=== PATIENT | male | born 1935 | race Caucasian/White ===

== ENCOUNTER 2016-08-08 15:21 | Observation (INO) ==
[2016-08-08] MEDS ORDERED: Nitroglycerin 0.4 MG TAB.SUBL SL PRN (15:26)
[2016-08-08] MEDS ORDERED: Aspirin 325 MG TABLET PO ONE (15:28)
--- NOTE | 2016-08-08 15:29 | Emergency Department Note ---
Disposition Clinical Impression: Chest pain Qualifiers: Chest pain type: unspecified Qualified Code(s): R07.9 - Chest pain, unspecified Disposition: Admitted As Inpatient Condition: Fair Time of Disposition: 17:13 Chest Pain HPI - General Chief Complaint: ED Chest Pain Stated Complaint: Chest Pain Time Seen by Provider: 08/08/16 15:24 Source: patient Mode of arrival: wheelchair Limitations: no limitations Vital Signs Reviewed: Yes Nursing Notes Reviewed: Yes - History of Present Illness HPI Narrative: 81-year-old male with history of CAD, hypertension, diabetes, hyperlipidemia, previous [place] with 4 cardiac stents arrives to [facility] emergency department from an outpatient [facility] dermatology practice after the patient states he was getting skin cancer removed and began complaining of difficulty breathing and chest pain. The patient states that this came all of a sudden wanted to be checked out. The patient states this feels somewhat like his previous [place] but states this time he has pain in his right upper extremity associated with it. The patient denies any other complaints at this time to include unilateral leg swelling, abdominal pain, nausea, vomiting, diarrhea, cough, fever, chills. 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 Onset: during rest Pain Location: substernal Severity: moderate Severity scale (1-10): 4 Quality: tightness Pain Radiation: RUE Improves with: nothing Worsens with: nothing Associated symptoms: Reports: dyspnea Treatments prior to arrival chest pain: none - Related Data On Oral Contraceptives: No Home Medications Medication Instructions Recorded Confirmed Aspirin 81 mg PO DAILY 08/08/16 08/08/16 Clopidogrel [Plavix] 75 mg PO DAILY 08/08/16 08/08/16 Ergocalciferol (VITAMIN D2) 50,000 unit PO PETTY 08/08/16 08/08/16 [Vitamin D2] Fenofibrate Nanocrystallized 160 mg PO DAILY 08/08/16 08/08/16 [Triglide] Linagliptin [Tradjenta] 5 mg PO DAILY 08/08/16 08/08/16 Lisinopril [Zestril] 40 mg PO DAILY 08/08/16 08/08/16 Metoprolol [Lopressor] 25 mg PO BID 08/08/16 08/08/16 Multivitamin [One Daily 1 each PO DAILY 08/08/16 08/08/16 Multivitamin] Pantoprazole Sodium [Protonix] 40 mg PO DAILY 08/08/16 08/08/16 Simvastatin [Zocor] 20 mg PO HS 08/08/16 08/08/16 amLODIPine [Norvasc] 5 mg PO DAILY 08/08/16 08/08/16 Allergies Allergy/AdvReac Type Severity Reaction Status Date / Time No Known Allergies Allergy Verified 08/08/16 17:18 All systems ED: reviewed and negative except as stated. Constitutional: Denies: fever, chills, weakness, weight change Cardiovascular: Reports: chest pain. Denies: palpitations, dyspnea on exertion , edema, syncope Respiratory: Reports: dyspnea. Denies: cough, wheezes, hemoptysis, stridor Gastrointestinal: Denies: abdominal pain, nausea, vomiting, diarrhea, constipation, hematemesis, melena, hematochezia Genitourinary: Denies: urgency, dysuria, frequency, hematuria Musculoskeletal: Denies: back pain, neck pain, arthralgia, myalgia Integumentary: Denies: rash, abrasion, lesions Neurological: Denies: headache, weakness, numbness, paresthesias, confusion, abnormal gait, vertigo Chest Pain PMH - Past Medical History Medical history: Reports: diabetes, hyperlipidemia, hypertension, myocardial infarction, renal disease Psychiatric history: Reports: no psych history Prior Cardiac Testing/Procedures: Stenting (x4) - Social History Smoking Status: Never smoker Alcohol use: Reports: none Drug use: Reports: none Physical Exam - General Limitations: no limitations General appearance: alert - Head Head exam: normocephalic, normal inspection, other (Numerous bandages from surgical site on face.) - Neck Neck exam: Present: normal inspection, full ROM, trachea midline - Respiratory Respiratory exam: Present: normal lung sounds bilaterally - Cardiovascular Cardiovascular exam: Present: regular rate, normal rhythm, normal heart sounds - Abdominal Exam Abdominal exam: Present: soft, Non-Tender. Absent: tenderness, distention, guarding, rebound, rigidity - Extremities Exam Extremities exam: Present: normal inspection, full ROM. Absent: tenderness, pedal edema - Neurological Exam Neurological exam: Present: alert, oriented X3 Course Vital Signs Temperature 98.7 F 08/08/16 15:22 Pulse Rate 73 08/08/16 15:22 Respiratory Rate 20 08/08/16 15:22 Blood Pressure 125/81 08/08/16 15:22 O2 Sat by Pulse Oximetry 95 08/08/16 15:22 Temperature 98.3 F 08/08/16 18:36 Pulse Rate 55 08/08/16 18:36 Respiratory Rate 16 08/08/16 18:36 Blood Pressure 155/70 08/08/16 18:36 O2 Sat by Pulse Oximetry 95 08/08/16 18:36 Oxygen Delivery Oxygen Delivery Room Air Chest Pain - MDM Narrative Medical decision making narrative: Work up in the ED demonstrates no acute findings, but given the past history of [place] and CAD we will admit the patient to the hospital. Accepted by Dr. pate and Dr. mendoza. The patient's troponin and EKG demonstrated no acute findings. Given the patient's extensive medical history and symptoms, admission for repeat troponins would be appropriate. Patient agrees to this plan. While in the emergency department, the dermatology physician remove the sutures from previous skin cancer removal biopsies. - Medical Records Medical records reviewed: Yes I reviewed the patient's medical records. - Lab Data Lab results reviewed: Yes I reviewed the patient's lab results. Result diagrams: 08/08/16 15:30 08/08/16 15:30 Lab Results 08/08/16 08/08/16 08/08/16 Range/Units 15:30 15:30 15:30 WBC 8.7 (4.3-11.1) K/mcL RBC 4.37 (4.19-5.50) M/mcL Hgb 12.9 (12.9-16.9) g/dL Hct 39.8 (37.5-50.1) % MCV 91.1 (83.0-100.0) fL MCH 29.5 (28.0-33.3) pg MCHC 32.4 (31.6-35.5) g/dL RDW 13.3 (11.5-14.5) % Plt Count 246 (140-400) K/mcL MPV 9.9 (9.4-12.4) fL Immature Gran % 0.5 (0-4) % Seg Neutrophils % 56.5 % Lymphocytes % 28.9 % Monocytes % 7.1 % Eosinophils % 6.2 % Basophils % 0.8 % Neutrophils # 4.9 (1.6-8.9) K/mcL Lymphocytes # 2.5 (0.6-4.6) K/mcL Monocytes # 0.6 (0.0-1.3) K/mcL Eosinophils # 0.5 (0.0-0.6) K/mcL Basophils # 0.1 (0.0-0.2) K/mcL Sodium 141 (136-145) mEq/L Potassium 4.0 (3.5-4.5) mEq/L Chloride 106 (98-109) mEq/L Carbon Dioxide 25 (19-29) mEq/L BUN 31 H (8-26) mg/dL Creatinine 1.61 H (0.72-1.25) mg/dL Est GFR ( Amer) 50 L (> 60) Est GFR (Non-Af Amer) 41 L (> 60) BUN/Creatinine Ratio 19 (6-26) Glucose 188 H (70-99) mg/dL Calculated Osmolality 304 H (280-300) Calcium 9.9 (8.6-10.8) mg/dL Troponin I 0.00 (0-0.03) ng/mL - Radiology Data Radiology results reviewed: Yes I reviewed the patient's radiology results. - EKG Data EKG attestation: Yes I reviewed and interpreted this EKG. EKG results narrative: Heart rate 79 bpm. ND interval 154 ms. QTC 419 ms. Normal axis. Normal sinus rhythm. No ST elevation or ST depression noted. EKG from 01/20/2014 demonstrated sinus bradycardia with numerous PVCs. Otherwise rhythm is similar in appearance. No acute changes noted.
[2016-08-08 15:44] LABS: Basophils # 0.1 K/mcL (0.0-0.2); Basophils % 0.8 %; Eosinophils # 0.5 K/mcL (0.0-0.6); Eosinophils % 6.2 %; Hematocrit 39.8 % (37.5-50.1); Hemoglobin 12.9 g/dL (12.9-16.9); Immature Granulocytes % 0.5 % (0-4); Lymphocytes # 2.5 K/mcL (0.6-4.6); Lymphocytes % 28.9 %; Mean Corpuscular HGB Conc 32.4 g/dL (31.6-35.5); Mean Corpuscular Hemoglobin 29.5 pg (28.0-33.3); Mean Corpuscular Volume 91.1 fL (83.0-100.0); Mean Platelet Volume 9.9 fL (9.4-12.4); Monocytes # 0.6 K/mcL (0.0-1.3); Monocytes % 7.1 %; Neutrophils # 4.9 K/mcL (1.6-8.9); Platelet Count 246 K/mcL (140-400); Red Blood Count 4.37 M/mcL (4.19-5.50); Red Cell Distribution Width 13.3 % (11.5-14.5); Segmented Neutrophils % 56.5 %
[2016-08-08] MEDS ORDERED: Aspirin 81 MG TAB.CHEW ONE (15:47)
[2016-08-08 15:54] LABS: Calcium 9.9 mg/dL (8.6-10.8)
--- NOTE | 2016-08-08 16:20 | Emergency Department Note ---
START Narrative - START START: I examined this patient and my medical decision-making was reviewed with the GENERAL ADJUSTER/PA/Advanced Practice Nurse/Resident Physician. I agree with the documented findings, disposition and treatment plan as described except to the extent set forth below. ED attending note: I saw this Patient with the emergency medicine resident Dr. Campuzano. Please see a copy of his note for details of the H&P, evaluation, management and disposition of this emergency Department patient. We independently had [id number] contact with the patient. Briefly 81-year-old male history of CAD/[place], stents x 4 in the past was at the digital marketing assistant having a "skin cancer removed". In experience chest pain. Patient says it felt like his prior heart attack and he was sent here for further evaluation. Patient's multiple risk factors. His troponin and chest x- ray were otherwise negative and the be admitted for chest pain rule out acute coronary syndrome. Provided 35 minutes of critical care services for this patient. Currently the digital marketing assistant is in the room as we speak and removing the skin lesion from the patient's forehead. Admission pending. Patient stable.
--- NOTE | 2016-08-08 17:50 | Internal Med History&Physical ---
<Edwin Flowers - Last Filed: 08/08/16 18:05> Date of Encounter: 08/08/16 Internal Medicine - H&P: HPI History of present illness: Mr. Mack is a 81 year old male Internal Medicine - H&P: Meds Aspirin 81 mg PO DAILY 08/08/16 [History] Clopidogrel [Plavix] 75 mg PO DAILY 08/08/16 [History] Ergocalciferol (VITAMIN D2) [Vitamin D2] 50,000 unit PO PETTY 08/08/16 [History] Fenofibrate Nanocrystallized [Triglide] 160 mg PO DAILY 08/08/16 [History] Linagliptin [Tradjenta] 5 mg PO DAILY 08/08/16 [History] Lisinopril [Zestril] 40 mg PO DAILY 08/08/16 [History] Metoprolol [Lopressor] 25 mg PO BID 08/08/16 [History] Multivitamin [One Daily Multivitamin] 1 each PO DAILY 08/08/16 [History] Pantoprazole Sodium [Protonix] 40 mg PO DAILY 08/08/16 [History] Simvastatin [Zocor] 20 mg PO HS 08/08/16 [History] amLODIPine [Norvasc] 5 mg PO DAILY 08/08/16 [History] Allergies No Known Allergies Allergy (Verified 08/08/16 17:18) All Systems PM: A 10-system review of systems was performed and is negative for pertinent findings except as documented above in the HPI. - Constitutional Vitals: Temp Pulse Resp BP Pulse Ox 98.7 F 66 14 144/75 95 08/08/16 15:22 08/08/16 16:42 08/08/16 17:59 08/08/16 17:59 08/08/16 16:42 Internal Med - H&P Results - Labs CBC & Chem 7: 08/08/16 15:30 08/08/16 15:30 - Attending Attestation I examined this patient and my medical decision-making was reviewed with the CORPORATE SAFETY COORDINATOR/PA/Advanced Practice Nurse/Resident Physician. I agree with the documented findings, disposition and treatment plan as described except to the extent set forth below. <Aldo Peacock - Last Filed: 08/08/16 18:44> Date of Encounter: 08/08/16 Time of Encounter: 17:50 Assessment and Plan (1) Chest pain Current visit: Yes Status: Acute 81-year-old male with a history of coronary artery disease and cardiac stenting 4 with the last stent in 2005 was brought to the emergency department after experiencing substernal chest pressure with radiation to his right arm at the dermatology office. - Current chest pain resolved - EKG demonstrates normal sinus rhythm with left axis, no ST elevation, depression or T-wave inversion - Troponin level X1: 0.00 ADRYAN score: 4 (age greater than 65, greater than 3 coronary artery disease risk factors, known coronary artery disease, aspirin use in the last 7 days) - Appears to be noncardiac chest pain but cannot say if not atypical angina: given that the patient does have substernal chest pressure, though it was not exacerbated with exertion I cannot say he did not have some level of stress given he had hypoglycemia prior to this episode and was having a in office procedure done. He was also at rest at the time of this procedure and chest pressure but did receive nitroglycerin after stated resolution of symptoms. 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 - We will continue simvastatin - We will obtain lipid panel Qualifiers: Qualified Code(s): I25.10 - Atherosclerotic heart disease of [place] coronary artery without angina pectoris (3) History of coronary artery stent placement Current visit: Yes Status: Acute As mentioned above. - The patient is taking Plavix and aspirin but given the length of time since his last coronary stent he would likely not need to continue Plavix. I will place this in my discharge note and allow him to discuss this with his primary care provider. (4) Hypertension Current visit: Yes Status: Acute Continue current management as blood pressure is stable. - Patient is known history of CK D stage III with a current creatinine of 1.61 which is stable compared to the last 2 years. - His outpatient offset platemaker is Dr. Lazaro Plan: - Continue appropriate blood pressure control - Continue monitoring renal function daily - Renally dose antibiotics and avoid nephrotoxic medications - Given renal function will do subcutaneous heparin for DVT prophylaxis Qualifiers: Qualified Code(s): I10 - Essential (primary) hypertension (5) Hypercholesterolemia Current visit: Yes Status: Acute Known history. Ordering lipid panel. (6) Diabetes type 2, controlled Current visit: Yes Status: Acute Known history of type 2 diabetes well controlled. Review of outpatient records demonstrates that the patient has had a hemoglobin A1c of 7.1 on the of this month. Plan: -Before meals at bedtime glucose checks - Low-dose sliding scale insulin Qualifiers: Qualified Code(s): E11.9 - Type 2 diabetes mellitus without complications Internal Medicine - H&P: HPI Admitted From: Emergency Dept Plans for Post Hospital Care: Home History of present illness: Mr. Mack is a 81 year old male with a history of coronary artery disease, hypercholesterolemia, hypertension, type 2 diabetes, [place], cardiac stent 4, multiple left heart catheterizations, CKD stage III, skin cancer was sent to the emergency department from dermatology with substernal chest pressure radiating to his right arm. Mr. Mack was at the template storage clerk's office today having skin cancer lesions excised from his face when he started having substernal chest pressure radiating to his right arm which she described as a feeling of a toothache. He said prior to this event he had low blood sugar and was shaky and went to the vending machine to get some crackers. He otherwise was in his normal state of health. He was at rest when he demonstrated these substernal chest pressure feeling and radiation to the right arm and a throbbing manner. He denies any radiation to his left arm to his jaw or to his back. He did experience similar chest pressure in the past when he had previous myocardial infarctions. He did present a piece of paper from his wallet which demonstrated multiple left heart catheterizations and 4 coronary stents with the last one in 2005. He says he currently takes aspirin and Plavix. He denies any chest pressure with exertion but does become short of breath. He was not experiencing any previous chest pressure prior to this event today or in the last week. He says that the substernal chest pressure relieved when he was brought to the emergency department and prior to having the sublingual nitroglycerin. He did not have any chest pressure or radiation to his arms at the time of this encounter. He denies any nausea, vomiting, diarrhea. Chest pain, shortness of breath at rest, dizziness, palpitations or abdominal pains. He has been constipated with his last bowel movement on Monday. He does admit to a history of GERD but has not had any recent symptoms. He says his home glucose levels are between 110 and 130 fasting. Past Med Surg Social Fam HX - Past Medical History Medical history: diabetes, hyperlipidemia, hypertension, myocardial infarction, renal disease Psychiatric history: no psych history - Social History Smoking Status: Never smoker Smokeless Tobacco Status: No Alcohol use: none Drug use: none All Systems PM: A 10-system review of systems was performed and is negative for pertinent findings except as documented above in the HPI. - Constitutional Constitutional: weakness (Lower extremities) - EENT Eyes: no blurry vision, no change in vision, no diplopia, no loss of vision, no tunnel vision Ears: no decreased hearing Nose, mouth and throat: no dysphagia, no sore throat - Cardiovascular Cardiovascular ROS IM: chest pain (Chest pressure), dyspnea on exertion, no lightheadedness, no orthopnea, no palpitations, no syncope - Respiratory Respiratory: dyspnea, no cough, no wheezing - Gastrointestinal Gastrointestinal: constipation, heartburn, no abdominal pain, no diarrhea, no loose stools, no nausea, no vomiting - Musculoskeletal Musculoskeletal ROS IM: no back pain, no muscle weakness, no numbness, no stiffness - Integumentary Integumentary IM: other (Skin cancer removal just prior to admission) - Neurological Neurological ROS: no abnormal gait, no abnormal hearing, no confusion, no loss of vision, no numbness, no restless legs - Psychiatric Psychiatric: no depression - Constitutional Vitals: Temp Pulse Resp BP Pulse Ox 98.7 F 66 14 136/72 95 08/08/16 15:22 08/08/16 16:42 08/08/16 16:42 08/08/16 16:42 08/08/16 16:42 Exam: General: Patient alert, awake, oriented 3, interactive, in no acute distress HEENT: Normocephalic, atraumatic, pupils equal reactive to light, nasal cavity patent and open septum median position, oral mucosa moist, uvula midline, neck supple trachea midline no palpable lymphadenopathy, no thyromegaly. Chest: Symmetric bilateral correlating with respiratory effort, effort nonlabored. Cardiac: Regular rate and rhythm, positive S1, S2, no bruits appreciated bilateral carotids, Radial pulses 2+ bilateral, posterior tibial and dorsal pedal pulses 2+ bilateral. Respiratory: Mild rhonchi appreciated in bilateral lung bases, clear auscultation all other lung english Abdomen: Soft, nontender, positive bowel sounds, no palpable masses appreciated on examination Extremities: Symmetric bilateral, trace edema in bilateral lower extremities patient moving all 4 extremities spontaneously. Neurologic: No focal deficits appreciated on examination. Face symmetric, muscle strength symmetric bilateral upper and lower extremities. Internal Med - H&P Results - Labs CBC & Chem 7: 08/08/16 15:30 08/08/16 15:30
[2016-08-08] MEDS ORDERED: *HR* Dextrose 50 % in Water (Syg) 50 ML SYRINGE IVP PRN (18:45)
[2016-08-08] MEDS ORDERED: D5% in Water 1,000 ML IVC PRN (18:45)
[2016-08-08] MEDS ORDERED: Dextrose Gel 15 GM PO PRN ×2 (18:45)
[2016-08-08] MEDS ORDERED: Insulin LISPRO 300 UNITS/3 ML VIAL SQ SCH (21:00)
[2016-08-08] MEDS: Insulin LISPRO 300 UNITS/3 ML VIAL SQ SCH (21:27)
[2016-08-08] MEDS: *HR* Heparin 5,000 UNIT/ML VIAL SQ SCH (22:09)
[2016-08-09 02:03] LABS: Basophils # 0.1 K/mcL (0.0-0.2); Basophils % 0.7 %; Eosinophils # 0.5 K/mcL (0.0-0.6); Hematocrit 34.5 % (37.5-50.1); Immature Granulocytes % 0.4 % (0-4); Lymphocytes # 2.2 K/mcL (0.6-4.6); Lymphocytes % 29.3 %; Mean Corpuscular HGB Conc 32.5 g/dL (31.6-35.5); Mean Corpuscular Hemoglobin 29.4 pg (28.0-33.3); Mean Corpuscular Volume 90.6 fL (83.0-100.0); Mean Platelet Volume 10.5 fL (9.4-12.4); Monocytes # 0.7 K/mcL (0.0-1.3); Neutrophils # 4.2 K/mcL (1.6-8.9); Platelet Count 212 K/mcL (140-400); Red Blood Count 3.81 M/mcL (4.19-5.50); Red Cell Distribution Width 13.3 % (11.5-14.5); Segmented Neutrophils % 54.6 %
[2016-08-09 02:06] LABS: Hemoglobin 11.2 g/dL (12.9-16.9)
[2016-08-09 02:17] LABS: Albumin 3.5 g/dL (3.5-5.0); Albumin/Globulin Ratio 1.2 (1.1-2.2); Bilirubin,Total 0.3 mg/dL (0.2-1.2); Calcium 9.2 mg/dL (8.6-10.8); Globulin 2.9 g/dL (2.4-3.5); Magnesium 1.9 mg/dL (1.6-2.6); Phosphorous 3.6 mg/dL (2.3-4.7); Total Protein 6.4 g/dL (6.0-8.3)
[2016-08-09] MEDS: *HR* Heparin 5,000 UNIT/ML VIAL SQ SCH ×2 (06:28→15:04)
[2016-08-09] MEDS: Insulin LISPRO 300 UNITS/3 ML VIAL SQ SCH ×3 (07:56→17:25)
[2016-08-09] MEDS ORDERED: (Linagliptin [Tradjenta] 5 MG) PO SCH (09:00)
[2016-08-09] MEDS ORDERED: Lisinopril 20 MG TABLET PO SCH (09:00)
[2016-08-09] MEDS ORDERED: Fenofibrate 54 MG TABLET PO SCH (09:00)
[2016-08-09] MEDS ORDERED: Aspirin 81 MG TAB.CHEW PO SCH (09:00)
[2016-08-09] MEDS ORDERED: amLODIPine 5 MG TABLET PO SCH (09:00)
[2016-08-09] MEDS ORDERED: Regadenoson 0.4 MG/5 ML SYRINGE IVP ONE (09:57)
--- NOTE | 2016-08-09 11:49 | Internal Med Progress Note ---
Date of Encounter: 08/09/16 Time of Encounter: 11:29 - Assessment and plan (1) Chest pain Current Visit: Yes Status: Acute Assessment and plan: 81-year-old male with a history of coronary artery disease and cardiac stenting 4 with the last stent in 2005 was brought to the emergency department after experiencing substernal chest pressure with radiation to his right arm at the dermatology office. - Current chest pain resolved - EKG demonstrates normal sinus rhythm with left axis, no ST elevation, depression or T-wave inversion - Troponin level X1: 0.00 ADRYAN score: 4 (age greater than 65, greater than 3 coronary artery disease risk factors, known coronary artery disease, aspirin use in the last 7 days) - Appears to be noncardiac chest pain but cannot say if not atypical angina: given that the patient does have substernal chest pressure, though it was not exacerbated with exertion I cannot say he did not have some level of stress given he had hypoglycemia prior to this episode and was having a in office procedure done. He was also at rest at the time of this procedure and chest pressure but did receive nitroglycerin after stated resolution of symptoms. Troponins 3 negative - Plan: - telemetry monitor - Optimize cardiac medications: Continue home dose simvastatin, lisinopril, Lopressor, aspirin, Plavix - Echocardiogram - Trend troponins 3 Qualifiers: Chest pain type: unspecified Qualified Code(s): R07.9 - Chest pain, unspecified (2) Coronary artery disease Current Visit: Yes Status: Acute (3) History of coronary artery stent placement Current Visit: Yes Status: Acute (4) Hypertension Current Visit: Yes Status: Acute (5) Hypercholesterolemia Current Visit: Yes Status: Acute (6) Diabetes type 2, controlled Current Visit: Yes Status: Acute - Constitutional Vitals: Temp Pulse Resp BP Pulse Ox 97.8 F 54 17 157/75 92 08/09/16 06:58 08/09/16 06:58 08/09/16 06:58 08/09/16 06:58 08/09/16 07:40 Internal Medicine: Result - Labs CBC & Chem 7: 08/09/16 01:10 08/09/16 01:10 Labs: Short CBC 08/09/16 Range/Units 01:10 WBC 7.7 (4.3-11.1) K/mcL Hgb 11.2 L D (12.9-16.9) g/dL Hct 34.5 L (37.5-50.1) % Plt Count 212 (140-400) K/mcL Neutrophils # 4.2 (1.6-8.9) K/mcL BMP 08/09/16 01:10 Sodium 141 Potassium 4.0 Chloride 109 Carbon Dioxide 25 BUN 30 H Creatinine 1.57 H Glucose 139 H Calcium 9.2 Cardiac Enzymes 08/08/16 08/09/16 08/09/16 Range/Units 18:48 01:08 06:57 Troponin I 0.01 0.02 0.01 (0-0.03) ng/mL Liver Function 08/09/16 Range/Units 01:10 Total Bilirubin 0.3 (0.2-1.2) mg/dL AST 17 (5-34) Units/L ALT 16 (0-55) Units/L Alkaline Phosphatase 47 (38-126) Units/L Albumin 3.5 (3.5-5.0) g/dL Consult Discharge Plan - Plan Referrals: Rajiv Peguero MD [Primary Care Provider] - 08/17/16 3:15 pm
[2016-08-09 15:01] VITALS: BP 134/56
--- NOTE | 2016-08-09 16:19 | Nuclear Medicine Stress Report ---
Regadenoson Nuclear Stress Name: Vipin Mack Date of Study: 08/09/2016 Date: 1935 Ht: 69.0 in Medical Record#: [id number] Age: 81 Wt: 198.0 lb Gender: Male Order #: [id number] [facility]: [facility] Room: [facility] Supervising Provider: Hector Howard CNP Reading Physician: Mague Gupta DO Ordering Physician: Jammie Veliz CNP Primary Care Physician: Deion Peguero MD Stress Technologist: Boris Ballard CRT Concrete Rod Buster: Jessica Mcginnis Indications: Chest Pain Impression: Perfusion imaging was negative for ischemia or infarct. Pharmacologic ECG was negative for ischemia at the level of heart rate achieved. Gated EF = 51%. History: Hypertension Diabetes Hypercholesteremia Prior PCI Stress Test Summary: Stress Test Type: Pharmacologic Baseline Information: Initial Heart Rate: 60 Blood Pressure: 144/80 Stress Information: Test Terminated Due to (primary): As per protocol Maximum Blood Pressure: 130/76 Maximum Heart Rate: 74 Percent Maximum Heart Rate Achieved: 54 Double Product: 9620 METS Reached: 1 Symptoms: No chest symptoms Nuclear Summary: SPECT myocardial perfusion imaging using Tc99m Sestamibi given intravenously was performed at rest and following cardiac stress testing. The resting images were obtained following initial dose of 10.1 mCi. Following stress an additional dose of 29.9 mCi was given at peak exercise or 30 seconds post regadenoson infusion. Medication Given: Time Medication Dose Units Route Findings: Stress Note * Resting ECG demonstrated normal sinus rhythm with possible RV conduction delay. * Pharmacologic stress ECG is negative for ischemia at level of heart rate achieved. * No arrhythmias were noted during stress. * Patient had no chest pain during stress. Hemodynamic responses * Normal hemodynamic responses to pharmacologic stress. Study Quality * Study quality was fair. Gated EF % * Gated EF = 51%. Left Ventricle * The left ventricle is not dilated. TID * No evidence of transient ischemic dilatation. NORMALS * Normal wall motion. PERFUSION * There is a mild intensity fixed perfusion defect involving the basal inferolateral wall. Findings represent artifact. * Other segments demonstrate normal rest and stress perfusion. Updated by Mague Gupta on 08/09/2016 4:13:25 PM electronically signed on 08/09/2016 4:14:54 PM with status of Final
--- NOTE | 2016-08-09 16:50 | Discharge Summary ---
<Aldo Peacock - Last Filed: 08/09/16 16:47> Date of Encounter: 08/09/16 Time of Encounter: 16:47 - Discharge Diagnosis (1) Chest pain Priority: Primary Status: Acute Qualifiers: Chest pain type: unspecified Qualified Code(s): R07.9 - Chest pain, unspecified (2) Coronary artery disease Priority: Primary Status: Acute Qualifiers: Qualified Code(s): I25.10 - Atherosclerotic heart disease of [place] coronary artery without angina pectoris (3) History of coronary artery stent placement Priority: Primary Status: Acute (4) Hypertension Priority: Secondary Status: Acute Qualifiers: Qualified Code(s): I10 - Essential (primary) hypertension (5) Hypercholesterolemia Priority: Secondary Status: Acute (6) Diabetes type 2, controlled Priority: Secondary Status: Acute Qualifiers: Qualified Code(s): E11.9 - Type 2 diabetes mellitus without complications - Discharge Medications Home Medications: Aspirin 81 mg PO DAILY 08/08/16 [History] Clopidogrel [Plavix] 75 mg PO DAILY 08/08/16 [History] Ergocalciferol (VITAMIN D2) [Vitamin D2] 50,000 unit PO PETTY 08/08/16 [History] Fenofibrate Nanocrystallized [Triglide] 160 mg PO DAILY 08/08/16 [History] Linagliptin [Tradjenta] 5 mg PO DAILY 08/08/16 [History] Lisinopril [Zestril] 40 mg PO DAILY 08/08/16 [History] Metoprolol [Lopressor] 25 mg PO BID 08/08/16 [History] Multivitamin [One Daily Multivitamin] 1 each PO DAILY 08/08/16 [History] Pantoprazole Sodium [Protonix] 40 mg PO DAILY 08/08/16 [History] Simvastatin [Zocor] 20 mg PO HS 08/08/16 [History] amLODIPine [Norvasc] 5 mg PO DAILY 08/08/16 [History] Allergies/Adverse Reactions: Allergies No Known Allergies Allergy (Verified 08/08/16 17:18) Procedures/tests Complete & Pending: Procedures Performed prior 72 hours Category Date Time Status NM puma perf SPECT multi [NM] Routine Exams 08/09/16 07:48 Taken ECG 12 lead ECG [ECG] Routine Y 08/08/16 15:22 Completed EV echocardiogram Routine Y 08/08/16 18:09 Completed SP pharm nuclear stress Routine Y 08/09/16 07:48 Completed Date of admission: 08/08/16 17:25 Primary care physician: Rajiv Peguero MD Discharging clinician: Aldo Peacock Anticipated date of discharge: 08/09/16 - Patient Status Disposition: Home, Self-Care Condition: Fair Functional capacity at discharge: independent ambulation Overall status at discharge: patient is back to baseline - Discharge Instructions Instructions: Chest Pain (DC) Follow Up With: Rajiv Peguero MD [Primary Care Provider] - 08/17/16 3:15 pm Additional Instructions: follow up with PCP in the next 3-5 days for evaluation. Take prescriptions as prescribed. Return to the emergency department if you have recurrence of chest pain, chest pressure, N/V/D/C or any other concerning medical symptoms or signs. Follow up with [facility] post discharge. Please contact their office for appointment times. - Diet and Activity Activity: increase activity as tolerated Diet: diabetic diet, low fat, low cholesterol, low salt diet Interval History: Mr. Mack 81 Male with PMH of CAD, Coronary stents x4, DM type II, HTN, HLD, skin cancer was admitted to [facility] after experiencing chest pressure at the Dermatology office and was sent to the emergency department. He was evaluated with EKG that was not changed from his baseline, laboratory tests including CBC, CMP and troponin levels which were nonsignificant. His chest pressure resolved before sublingual nitroglycerin. He stated he has been compliant with his home medications. He was admitted to the general medical floor for Chest pain work up. ADRYAN score: 4 (age greater than 65 , greater than 3 coronary artery disease risk factors, known coronary artery disease, aspirin use in the last 7 days) His vitals and laboratory results remained stable through his inpatient stay. He underwent a Echocardiogram which demonstrated EF 60%, mild diastolic dysfunction of left ventricle, normal right ventricle. mild to moderate aortic regurgitation. mild mitral regurgitation, mild tricuspid regurgitation, no pulmonary htn. nuclear stress test was negative. Patient had negative troponin levels x3 and no recurrence of chest discomfort. He was seen and evaluated on 08/09/2016 and deemed stable to discharge home with close follow up with PCP and cardiology. Mr. Mack agreed to this plan. Hospital course: Mr. Mack is a 81 year old male - Time Spent with Patient Total time spent providing and/or coordinating discharge services: - Constitutional Vitals: Temp Pulse Resp BP Pulse Ox 98.0 F 51 17 134/56 93 08/09/16 14:58 08/09/16 14:58 08/09/16 14:58 08/09/16 14:58 08/09/16 14:58 General appearance: Present: cooperative, A&O X 3, pleasant - Head Head exam: Present: atraumatic, normocephalic - Eye Eye exam: Present: PERRL, conjuntiva pink, sclera anicteric Pupils: Present: PERRL - Neck Neck exam general surgery: Present: supple, trachea midline. Absent: lymphadenopathy - Respiratory Respiratory exam: Present: CTAB. Absent: accessory muscle use, rales, rhonchi, wheezes - Cardiovascular Cardiovascular exam: Present: RRR, +S1, +S2. Absent: diastolic murmur, gallop, rubs, systolic murmur - GI/Abdominal GI/Abdominal exam: Present: normal bowel sounds, soft, no peritoneal signs. Absent: distended, tenderness - Extremities Exam Extremities exam: Present: warm, radial pulses palpable and symetrical. Absent : calf tenderness, cyanotic, pedal edema - Neurological Exam Neurological exam: Present: alert, oriented X3, no focal deficits. Absent: pronater drift, facial droop, speech deficit - Psychiatric Psychiatric exam: Present: normal affect, normal mood <Kristie,Edwin P - Last Filed: 08/09/16 17:39> Date of Encounter: 08/09/16 Procedures/tests Complete & Pending: Procedures Performed prior 72 hours Category Date Time Status NM puma perf SPECT multi [NM] Routine Exams 08/09/16 07:48 Taken ECG 12 lead ECG [ECG] Routine Y 08/08/16 15:22 Completed EV echocardiogram Routine Y 08/08/16 18:09 Completed SP pharm nuclear stress Routine Y 08/09/16 07:48 Completed Date of admission: 08/08/16 17:25 Primary care physician: Rajiv Peguero MD Hospital course: Mr. Mack is a 81 year old male - Time Spent with Patient Total time spent providing and/or coordinating discharge services: - Constitutional Vitals: Temp Pulse Resp BP Pulse Ox 98.0 F 51 17 134/56 93 08/09/16 14:58 08/09/16 14:58 08/09/16 14:58 08/09/16 14:58 08/09/16 14:58 - Attending Attestation I examined this patient and my medical decision-making was reviewed with the PRIMER PRESS OPERATOR/PA/Advanced Practice Nurse/Resident Physician. I agree with the documented findings, disposition and treatment plan as described except to the extent set forth below. Follow up with cardiology in 1-2 weeks.
--- NOTE | 2016-08-10 08:25 | Electrocardiograph Report ---
[place] [id number] Test Date: 2016-08-08 Pat Name: Vipin Mack Department: 102 Room: [facility] Gender: M Rumper: : 1935 Requested By: Jammie Veliz Order Number: [id number] Reading MD: Kaushal Navarrete MD Measurements Intervals [place] Rate: 79 P: 51 ME: 154 QRS: -15 QRSD: 95 T: 51 QT: 385 QTc: 419 Interpretive Statements SINUS RHYTHM Electronically Signed On 08-10-2016 8:24:12 EDT by Kaushal Navarrete MD
== END 2016-08-09 18:26 | disposition home or self-care (01) ==
LOC: EMEROO 15:21 → 3BNU 15:21
PROVIDERS: ADMIT Internal Medicine; ATTEND Registered Nurse

== ENCOUNTER 2017-05-08 19:57 | Inpatient (IN) ==
--- NOTE | 2017-05-08 20:12 | Emergency Department Note ---
Disposition Clinical Impression: NSTEMI (non-ST elevated myocardial infarction) Disposition: Admitted As Inpatient Condition: Good Referrals: Rajiv Peguero MD [Primary Care Provider] - Forms: ED Satisfaction Letter Time of Disposition: 22:07 Chest Pain HPI - General Chief Complaint: ED Chest Pain Stated Complaint: Chest Pain Time Seen by Provider: 05/08/17 20:12 Source: patient, family Limitations: no limitations Vital Signs Reviewed: Yes Nursing Notes Reviewed: Yes - History of Present Illness HPI Narrative: Chest pain in the left side of his chest that started this evening. Intermittent. Based on his right arm. Greater in intensity than his previous chest pain with his AR. Associated mild shortness of breath. Severity scale (1-10): 0 - Related Data Home Medications Medication Instructions Recorded Confirmed Aspirin 81 mg PO DAILY 08/08/16 12/29/16 Clopidogrel [Plavix] 75 mg PO DAILY 08/08/16 12/29/16 Ergocalciferol (VITAMIN D2) 50,000 unit PO PETTY 08/08/16 12/29/16 [Vitamin D2] Fenofibrate Nanocrystallized 160 mg PO DAILY 08/08/16 12/29/16 [Triglide] Lisinopril [Zestril] 40 mg PO DAILY 08/08/16 12/29/16 Metoprolol [Lopressor] 25 mg PO BID 08/08/16 12/29/16 Multivitamin [One Daily 1 each PO DAILY 08/08/16 12/29/16 Multivitamin] Pantoprazole Sodium [Protonix] 40 mg PO DAILY 08/08/16 12/29/16 Simvastatin [Zocor] 20 mg PO HS 08/08/16 12/29/16 SitaGLIPtin [Januvia] 25 mg PO DAILY 10/25/16 12/29/16 Allergies Allergy/AdvReac Type Severity Reaction Status Date / Time No Known Allergies Allergy Verified 10/25/16 14:17 All systems ED: reviewed and negative except as stated. Constitutional: Denies: fever ENT ED: Denies: congestion Cardiovascular: Reports: chest pain. Denies: palpitations, syncope Respiratory: Reports: dyspnea (Mild). Denies: cough Gastrointestinal: Reports: other (Burping). Denies: abdominal pain, nausea, vomiting, diarrhea Musculoskeletal: Denies: back pain, neck pain Integumentary: Denies: rash, abrasion Neurological: Denies: headache Chest Pain PMH - Past Medical History Medical history: Reports: diabetes, hyperlipidemia, hypertension, myocardial infarction, renal disease Surgical history: Reports: angioplasty/stent Psychiatric history: Reports: no psych history Prior Cardiac Testing/Procedures: Stenting (x4) - Social History Smoking Status: Former smoker Alcohol use: Reports: none Drug use: Reports: none Physical Exam - General Limitations: no limitations General appearance: alert, in no apparent distress - Head Head exam: atraumatic, normocephalic, normal inspection - Eye Eye exam: Present: normal appearance, PERRL, EOMI - ENT ENT exam: normal exam, normal oropharynx, mucous membranes moist - Neck Neck exam: Present: normal inspection, full ROM, trachea midline - Chest Chest inspection: Present: normal inspection, symmetric chest wall rise - Respiratory Respiratory exam: Present: normal lung sounds bilaterally. Absent: respiratory distress, accessory muscle use - Cardiovascular Cardiovascular exam: Present: regular rate, normal rhythm, normal heart sounds - Abdominal Exam Abdominal exam: Present: soft, Non-Tender. Absent: tenderness, distention, guarding, organomegaly - Extremities Exam Extremities exam: Present: normal inspection, full ROM - Back Exam Back exam: Present: normal inspection, full ROM. Absent: tenderness - Neurological Exam Neurological exam: Present: alert, oriented X3 - Psychiatric Psychiatric exam: Present: normal affect, normal mood - Skin Skin exam: Present: warm, dry, intact, normal color. Absent: rash, cyanosis Course Course Narrative: Male patient complaining of chest pain. He describes it as an exploding sensation in his chest. Radiates down his arm. No associated nausea does have some burping associated with this however. States he was at his computer got up to go eaten started having pain. Is been intermittent. It got better and then when he started to eat it got significantly worse. Does have a history of stent placement. States that this is worse than whenever he had his heart attack. Mild dyspnea associated. Lung sounds are clear heart tones are normal abdomen is soft and nontender. No signs of edema to his extremities. Cardiac workup on the patient. Provided him with aspirin. - Reevaluation(s) Reevaluation #1: Patient's EKG showed no signs of acute ST elevation or depression. However his troponin is 1.09. We will start patient on heparin at this time. We will admit him to the hospital for an NSTEMI. He is agreeable to this. - Consultations Consultation #1: I spoke with Dr. Rylan Hillman on the phone with cardiology. He is where the patient is in the hospital with a and 70. He had no further. Time: 22:00 Consultation #2: Dr. Chavira accepted patient in stable condition. Time: 22:00 Vital Signs Temperature 97.9 F 05/08/17 20:00 Pulse Rate 59 05/08/17 20:00 Respiratory Rate 18 05/08/17 20:00 Blood Pressure 151/76 05/08/17 20:00 O2 Sat by Pulse Oximetry 97 05/08/17 20:00 Temperature 97.9 F 05/08/17 20:00 Pulse Rate 51 05/08/17 21:20 Respiratory Rate 18 05/08/17 21:20 Blood Pressure 149/80 05/08/17 21:20 O2 Sat by Pulse Oximetry 95 05/08/17 21:20 Oxygen Delivery Oxygen Delivery Room Air Chest Pain - Medical Records Medical records reviewed: Yes I reviewed the patient's medical records. - Lab Data Lab results reviewed: Yes I reviewed the patient's lab results. Result diagrams: 05/08/17 20:49 05/08/17 20:49 Lab Results 05/08/17 05/08/17 05/08/17 Range/Units 20:49 20:49 20:49 WBC 7.3 (4.3-11.1) K/mcL RBC 4.06 L (4.19-5.50) M/mcL Hgb 12.3 L (12.9-16.9) g/dL Hct 36.4 L (37.5-50.1) % MCV 89.7 (83.0-100.0) fL MCH 30.3 (28.0-33.3) pg MCHC 33.8 (31.6-35.5) g/dL RDW 13.7 (11.5-14.5) % Plt Count 176 (140-400) K/mcL MPV 10.1 (9.4-12.4) fL Immature Gran % 0.3 (0-4) % Seg Neutrophils % 53.4 % Lymphocytes % 31.2 % Monocytes % 11.6 % Eosinophils % 2.9 % Basophils % 0.6 % Neutrophils # 3.9 (1.6-8.9) K/mcL Lymphocytes # 2.3 (0.6-4.6) K/mcL Monocytes # 0.8 (0.0-1.3) K/mcL Eosinophils # 0.2 (0.0-0.6) K/mcL Basophils # 0.0 (0.0-0.2) K/mcL PT 11.5 (9.4-12.1) Seconds INR 1.1 APTT 27.9 (26.0-36.0) Seconds Sodium 140 (136-145) mEq/L Potassium 3.8 (3.5-5.1) mEq/L Chloride 104 (98-107) mEq/L Carbon Dioxide 29 (23-29) mEq/L BUN 26 H (8-23) mg/dL Creatinine 1.23 (0.70-1.30) mg/dL Est GFR ( Amer) > 60 (> 60) Est GFR (Non-Af Amer) 56 L (> 60) BUN/Creatinine Ratio 21 (6-26) Glucose 149 H (70-105) mg/dL Calculated Osmolality 298 (280-300) Calcium 10.0 (8.6-10.3) mg/dL Troponin I 1.09 H* (< 0.04) ng/mL - Radiology Data Radiology results reviewed: Yes I reviewed the patient's radiology results. Chest X-Ray 05/08/17 20:03 IMPRESSION: No acute cardiopulmonary process. D/ / Gabriela Shay MD / Gabriela Shay MD Interpreting Provider: Gabriela Shay MD - EKG Data EKG attestation: Yes I reviewed and interpreted this EKG. EKG results narrative: Sinus bradycardia rate of 54. MA interval is 168. Your a duration is 89. QT is 436. QTC is 422. No signs of acute ischemia. No previous to compare to. Heart Score - Score History: Moderately Suspicious EKG: Non Specific repolarisation Disturbance Age: Greater than 65 Risk Factors: Equal/Greater than 3 risk factor or history of atherosclerotic disease Troponin: Greater than 3x normal limit HEART Score Total: 8
[2017-05-08] MEDS ORDERED: Aspirin 81 MG TAB.CHEW PO STA (20:28)
[2017-05-08] MEDS ORDERED: *HR* FentaNYL (PF) 100 MCG/2 ML VIAL IVP ONE (20:28)
[2017-05-08 21:08] LABS: Basophils % 0.6 %; Eosinophils # 0.2 K/mcL (0.0-0.6); Eosinophils % 2.9 %; Hematocrit 36.4 % (37.5-50.1); Hemoglobin 12.3 g/dL (12.9-16.9); Immature Granulocytes % 0.3 % (0-4); Lymphocytes # 2.3 K/mcL (0.6-4.6); Lymphocytes % 31.2 %; Mean Corpuscular HGB Conc 33.8 g/dL (31.6-35.5); Mean Corpuscular Hemoglobin 30.3 pg (28.0-33.3); Mean Corpuscular Volume 89.7 fL (83.0-100.0); Mean Platelet Volume 10.1 fL (9.4-12.4); Monocytes # 0.8 K/mcL (0.0-1.3); Monocytes % 11.6 %; Neutrophils # 3.9 K/mcL (1.6-8.9); Platelet Count 176 K/mcL (140-400); Red Blood Count 4.06 M/mcL (4.19-5.50); Red Cell Distribution Width 13.7 % (11.5-14.5); Segmented Neutrophils % 53.4 %
[2017-05-08 21:13] LABS: INR 1.1; Prothrombin Time 11.5 Seconds (9.4-12.1)
[2017-05-08 21:16] LABS: Activated Partial Thrombo Time 27.9 Seconds (26.0-36.0)
[2017-05-08 21:34] LABS: BUN/Creatinine Ratio 21 (6-26); Blood Urea Nitrogen 26 mg/dL (8-23); Carbon Dioxide 29 mEq/L (23-29); Chloride 104 mEq/L (98-107); Glucose 149 mg/dL (70-105); Osmolality,Calculated 298 (280-300); Potassium 3.8 mEq/L (3.5-5.1); Sodium 140 mEq/L (136-145); eGFR For African Americans > 60 (> 60); eGFR For Non-African Americans 56 (> 60)
[2017-05-08 21:37] LABS: Troponin I 1.09 ng/mL (< 0.04)
--- NOTE | 2017-05-08 21:52 | Emergency Department Note ---
Disposition Clinical Impression: NSTEMI (non-ST elevated myocardial infarction) Disposition: Admitted As Inpatient Condition: Good Chest Pain HPI - General Chief Complaint: ED Chest Pain Stated Complaint: Chest Pain Time Seen by Provider: 05/08/17 20:12 Source: patient, family Mode of arrival: ambulatory Limitations: no limitations Vital Signs Reviewed: Yes Nursing Notes Reviewed: Yes - History of Present Illness Severity scale (1-10): 0 - Related Data Home Medications Medication Instructions Recorded Confirmed Aspirin 81 mg PO DAILY 08/08/16 05/08/17 Clopidogrel [Plavix] 75 mg PO DAILY 08/08/16 05/08/17 Ergocalciferol (VITAMIN D2) 50,000 unit PO PETTY 08/08/16 05/08/17 [Vitamin D2] Fenofibrate Nanocrystallized 160 mg PO DAILY 08/08/16 05/08/17 [Triglide] Lisinopril [Zestril] 40 mg PO DAILY 08/08/16 05/08/17 Metoprolol [Lopressor] 25 mg PO BID 08/08/16 05/08/17 Multivitamin [One Daily 1 each PO DAILY 08/08/16 05/08/17 Multivitamin] Simvastatin [Zocor] 20 mg PO HS 08/08/16 05/08/17 Sitagliptin Phosphate [Januvia] 50 mg PO DAILY 05/08/17 05/08/17 amLODIPine [Norvasc] 5 mg PO DAILY 05/08/17 05/08/17 hydroCHLOROthiazide 25 mg PO DAILY 05/08/17 05/08/17 [Hydrochlorothiazide] Allergies Allergy/AdvReac Type Severity Reaction Status Date / Time No Known Allergies Allergy Verified 10/25/16 14:17 Chest Pain PMH - Past Medical History Medical history: Reports: diabetes, hyperlipidemia, hypertension, myocardial infarction, renal disease Surgical history: Reports: angioplasty/stent Psychiatric history: Reports: no psych history Prior Cardiac Testing/Procedures: Stenting (x4) - Social History Smoking Status: Former smoker Alcohol use: Reports: none Drug use: Reports: none Physical Exam - General Limitations: no limitations General appearance: alert, in no apparent distress Course Vital Signs Temperature 97.9 F 05/08/17 20:00 Pulse Rate 59 05/08/17 20:00 Respiratory Rate 18 05/08/17 20:00 Blood Pressure 151/76 03/26/18 20:00 O2 Sat by Pulse Oximetry 97 05/08/17 20:00 Temperature 97.9 F 05/09/17 05:10 Pulse Rate 49 05/09/17 05:10 Respiratory Rate 14 05/09/17 05:10 Blood Pressure 145/73 05/09/17 05:10 O2 Sat by Pulse Oximetry 94 05/09/17 05:10 Oxygen Delivery Oxygen Delivery Room Air Chest Pain - Medical Records Medical records reviewed: Yes I reviewed the patient's medical records. - Lab Data Lab results reviewed: Yes I reviewed the patient's lab results. Result diagrams: 05/09/17 02:27 05/09/17 02:27 Lab Results 05/08/17 05/08/17 05/08/17 Range/Units 20:49 20:49 20:49 WBC 7.3 (4.3-11.1) K/mcL RBC 4.06 L (4.19-5.50) M/mcL Hgb 12.3 L (12.9-16.9) g/dL Hct 36.4 L (37.5-50.1) % MCV 89.7 (83.0-100.0) fL MCH 30.3 (28.0-33.3) pg MCHC 33.8 (31.6-35.5) g/dL RDW 13.7 (11.5-14.5) % Plt Count 176 (140-400) K/mcL MPV 10.1 (9.4-12.4) fL Immature Gran % 0.3 (0-4) % Seg Neutrophils % 53.4 % Lymphocytes % 31.2 % Monocytes % 11.6 % Eosinophils % 2.9 % Basophils % 0.6 % Neutrophils # 3.9 (1.6-8.9) K/mcL Lymphocytes # 2.3 (0.6-4.6) K/mcL Monocytes # 0.8 (0.0-1.3) K/mcL Eosinophils # 0.2 (0.0-0.6) K/mcL Basophils # 0.0 (0.0-0.2) K/mcL PT 11.5 (9.4-12.1) Seconds INR 1.1 APTT 27.9 (26.0-36.0) Seconds Sodium 140 (136-145) mEq/L Potassium 3.8 (3.5-5.1) mEq/L Chloride 104 (98-107) mEq/L Carbon Dioxide 29 (23-29) mEq/L BUN 26 H (8-23) mg/dL Creatinine 1.23 (0.70-1.30) mg/dL Est GFR ( Amer) > 60 (> 60) Est GFR (Non-Af Amer) 56 L (> 60) BUN/Creatinine Ratio 21 (6-26) Glucose 149 H (70-105) mg/dL Calculated Osmolality 298 (280-300) Calcium 10.0 (8.6-10.3) mg/dL Troponin I 1.09 H* (< 0.04) ng/mL 05/08/17 05/08/17 Range/Units 21:53 21:53 WBC 8.1 (4.3-11.1) K/mcL RBC 3.94 L (4.19-5.50) M/mcL Hgb 11.7 L (12.9-16.9) g/dL Hct 35.4 L (37.5-50.1) % MCV 89.8 (83.0-100.0) fL MCH 29.7 (28.0-33.3) pg MCHC 33.1 (31.6-35.5) g/dL RDW 13.5 (11.5-14.5) % Plt Count 164 (140-400) K/mcL MPV 9.9 (9.4-12.4) fL Immature Gran % (0-4) % Seg Neutrophils % % Lymphocytes % % Monocytes % % Eosinophils % % Basophils % % Neutrophils # (1.6-8.9) K/mcL Lymphocytes # (0.6-4.6) K/mcL Monocytes # (0.0-1.3) K/mcL Eosinophils # (0.0-0.6) K/mcL Basophils # (0.0-0.2) K/mcL PT 11.8 (9.4-12.1) Seconds INR 1.1 APTT 28.1 (26.0-36.0) Seconds Sodium (136-145) mEq/L Potassium (3.5-5.1) mEq/L Chloride (98-107) mEq/L Carbon Dioxide (23-29) mEq/L BUN (8-23) mg/dL Creatinine (0.70-1.30) mg/dL Est GFR ( Amer) (> 60) Est GFR (Non-Af Amer) (> 60) BUN/Creatinine Ratio (6-26) Glucose (70-105) mg/dL Calculated Osmolality (280-300) Calcium (8.6-10.3) mg/dL Troponin I (< 0.04) ng/mL - Radiology Data Radiology results reviewed: Yes I reviewed the patient's radiology results. Attestation Statement - Attestation Attestation: I, Rylan Ramirez, examined this patient and my medical decision-making was reviewed with the DROP MAN/PA/Advanced Practice Nurse/Resident Physician. I agree with the documented findings, disposition and treatment plan as described except to the extent set forth below. 82-year-old male presents emergency Department with concerns of acute onset chest pain and eructation. Patient states symptoms feel somewhat similar to his previous [place]. Patient has multiple coronary artery stents in place. Denies syncopal event. Denies associated diaphoresis. Patient feels mildly nauseated. Initial troponin is elevated. This is likely an STEMI as his EKG did not show evidence of ST elevations.
[2017-05-08] MEDS ORDERED: *HR* Heparin 5,000 UNIT/ML VIAL IVP ONE (21:53)
[2017-05-08] MEDS ORDERED: *HR* Heparin 5,000 UNIT/ML VIAL IVP PRN ×2 (21:53)
[2017-05-08] MEDS ORDERED: Heparin 25,000 UNIT/500 ML D5W 25,000 UNIT/500 ML BAG IVC SCH (22:00)
[2017-05-08 22:33] LABS: Hematocrit 35.4 % (37.5-50.1); Hemoglobin 11.7 g/dL (12.9-16.9); Mean Corpuscular HGB Conc 33.1 g/dL (31.6-35.5); Mean Corpuscular Hemoglobin 29.7 pg (28.0-33.3); Mean Corpuscular Volume 89.8 fL (83.0-100.0); Mean Platelet Volume 9.9 fL (9.4-12.4); Platelet Count 164 K/mcL (140-400); Red Blood Count 3.94 M/mcL (4.19-5.50); Red Cell Distribution Width 13.5 % (11.5-14.5)
[2017-05-08 22:38] LABS: INR 1.1; Prothrombin Time 11.8 Seconds (9.4-12.1)
[2017-05-08 22:41] LABS: Activated Partial Thrombo Time 28.1 Seconds (26.0-36.0)
[2017-05-08] MEDS ORDERED: Naloxone 0.4 MG/ML INJ IVP PRN (23:10)
--- NOTE | 2017-05-08 23:16 | Internal Med History&Physical ---
Date of Encounter: 05/08/17 Time of Encounter: 23:14 Assessment and Plan (1) NSTEMI (non-ST elevated myocardial infarction) Current visit: Yes Status: Acute Discussed with ED physician who consulted cardiology to see tomorrow Telemetry, pulse ox, trend troponin, start heparin drip, close monitoring overnight ,repeat EKG in morning, check echo (2) Coronary artery disease Current visit: No Status: Acute Status post for stents, visits with Dr. Shay, on dual antiplatelet therapy Qualifiers: Coronary Disease-Associated Artery/Lesion type: [place] artery Qualified Code(s): I25.10 - Atherosclerotic heart disease of [place] coronary artery without angina pectoris (3) Diabetes type 2, controlled Current visit: No Status: Acute Continue medicine Qualifiers: Diabetes mellitus prison insulin use: without terminal operator use Diabetes mellitus complication status: without complication Qualified Code(s): E11.9 - Type 2 diabetes mellitus without complications (4) Hypertension Current visit: No Status: Acute Continue medicines Qualifiers: Hypertension type: essential hypertension Qualified Code(s): I10 - Essential (primary) hypertension Internal Medicine - H&P: HPI Chief complaint: Chest pain History of present illness: Mr. Mack is a 82 year old male history of CAD status post 4 stents, on dual antiplatelet therapy, diabetes type 2, nonsmoker, who presents with chest pain. Admitted for an STEMI with a troponin of greater than 1. Symptoms started at about 6 PM when patient was sitting on his computer. He developed left-sided chest pain, 10 out of 10 intermittent screen. A pressure with intermittent sharp sensation, lasting for a few minutes. Pain syndrome came on and off over the next few hours prior to ED visitation. Pain improved with ED visit where he only had one episode since. EKG personally reviewed with rate of 48 , normal sinus rhythm with no overt ST T changes. Repeat EKG personally reviewed again with rate 59, no significant ST -T changes XR/XR chest 2V IMPRESSION: No acute cardiopulmonary process. Past Med Surg Social Fam HX - Past Medical History Medical history: diabetes, hyperlipidemia, hypertension, myocardial infarction, renal disease Psychiatric history: no psych history - Past Surgical History Surgical History: angioplasty/stent - Social History Smoking Status: Former smoker Smokeless Tobacco Status: No Alcohol use: none Drug use: none - Family History Mother Living Status: Hx Family Cancer: Yes (breast) Father Living Status: Hx Family Cardiac Disorders: Yes ([place]) Internal Medicine - H&P: Meds Aspirin 81 mg PO DAILY 08/08/16 [History] Clopidogrel [Plavix] 75 mg PO DAILY 08/08/16 [History] Ergocalciferol (VITAMIN D2) [Vitamin D2] 50,000 unit PO PETTY 08/08/16 [History] Fenofibrate Nanocrystallized [Triglide] 160 mg PO DAILY 08/08/16 [History] Lisinopril [Zestril] 40 mg PO DAILY 08/08/16 [History] Metoprolol [Lopressor] 25 mg PO BID 08/08/16 [History] Multivitamin [One Daily Multivitamin] 1 each PO DAILY 08/08/16 [History] Simvastatin [Zocor] 20 mg PO HS 08/08/16 [History] Sitagliptin Phosphate [Januvia] 50 mg PO DAILY 05/08/17 [History] amLODIPine [Norvasc] 5 mg PO DAILY 05/08/17 [History] hydroCHLOROthiazide [Hydrochlorothiazide] 25 mg PO DAILY 05/08/17 [History] 3 Allergy/AdvReac Type Severity Reaction Status Date / Time No Known Allergies Allergy Verified 10/25/16 14:17 All Systems PM: A 10-system review of systems was performed and is negative for pertinent findings except as documented above in the HPI. Review of systems: ROS 14 point review of systems reviewed as best as possible given presentation. Pertinent positive or negative as per HPI or otherwise reviewed as negative - Constitutional Vitals: Temp Pulse Resp BP Pulse Ox 97.9 F 52 16 149/80 95 05/08/17 20:00 05/08/17 23:12 05/08/17 23:12 05/08/17 23:12 05/08/17 23:12 Exam: General - AAO x 3 Psych - Appropriate affect/speech. No agitation Eyes - ERIC. Eye lids intact. No scleral icterus Heart - Sinus. RRR. S1 and S2 present. No added HS/murmurs appreciated. No elevated JVD appreciated. Lung - Adequate air entry b/l, No crackles/wheezes appreciated GI - Soft, non-tender. No hepatosplenomegaly/ascites. BS+ - No CVA/suprapubic tenderness or palpable bladder distension Skin - Intact. No rash/petechiae/ecchymosis. Warm extremities MSK - Joints with normal ROM. No joint swellings Internal Med - H&P Results - Labs CBC & Chem 7: 05/08/17 21:53 05/08/17 20:49 Labs: Short CBC 05/08/17 05/08/17 Range/Units 20:49 21:53 WBC 7.3 8.1 (4.3-11.1) K/mcL Hgb 12.3 L 11.7 L (12.9-16.9) g/dL Hct 36.4 L 35.4 L (37.5-50.1) % Plt Count 176 164 (140-400) K/mcL Neutrophils # 3.9 (1.6-8.9) K/mcL BMP 05/08/17 20:49 Sodium 140 Potassium 3.8 Chloride 104 Carbon Dioxide 29 BUN 26 H Creatinine 1.23 Glucose 149 H Calcium 10.0 Cardiac Enzymes 05/08/17 Range/Units 20:49 Troponin I 1.09 H* (< 0.04) ng/mL - Impressions ITS Impressions Chest X-Ray 05/08/17 20:03 IMPRESSION: No acute cardiopulmonary process. D/ / Gabriela Shay MD / Gabriela Shay MD Interpreting Provider: Gabriela Shay MD
[2017-05-09 02:39] LABS: Basophils % 0.5 %; Eosinophils # 0.2 K/mcL (0.0-0.6); Hematocrit 37.5 % (37.5-50.1); Hemoglobin 12.5 g/dL (12.9-16.9); Immature Granulocytes % 0.4 % (0-4); Lymphocytes # 2.3 K/mcL (0.6-4.6); Lymphocytes % 30.9 %; Mean Corpuscular HGB Conc 33.3 g/dL (31.6-35.5); Mean Corpuscular Volume 89.9 fL (83.0-100.0); Mean Platelet Volume 10.1 fL (9.4-12.4); Monocytes # 0.8 K/mcL (0.0-1.3); Monocytes % 10.1 %; Neutrophils # 4.1 K/mcL (1.6-8.9); Platelet Count 177 K/mcL (140-400); Red Blood Count 4.17 M/mcL (4.19-5.50); Red Cell Distribution Width 13.2 % (11.5-14.5); Segmented Neutrophils % 55.1 %
[2017-05-09 02:57] LABS: BUN/Creatinine Ratio 19 (6-26); Blood Urea Nitrogen 23 mg/dL (8-23); Calcium 10.1 mg/dL (8.6-10.3); Carbon Dioxide 29 mEq/L (23-29); Chloride 103 mEq/L (98-107); Chol/HDL Ratio 3.2 (0-4.9); Cholesterol 110 mg/dL (< 200); Glucose 133 mg/dL (70-105); HDL Cholesterol 34 mg/dL (40-59); LDL Cholesterol,Calculated 41 mg/dL (0-99); Osmolality,Calculated 294 (280-300); Potassium 3.6 mEq/L (3.5-5.1); Sodium 139 mEq/L (136-145); Triglycerides 177 mg/dL (< 150); eGFR For African Americans > 60 (> 60); eGFR For Non-African Americans 57 (> 60)
[2017-05-09] MEDS ORDERED: *HR* SitaGLIPtin 25 MG TABLET PO SCH (09:00)
--- NOTE | 2017-05-09 10:17 | Cardiology Consult Note ---
Date of Encounter: 05/09/17 Time of Encounter: 10:11 Assessment and Plan (1) NSTEMI (non-ST elevated myocardial infarction) Current Visit: Yes Status: Acute Troponin elevation at 1.09, 1.06. EKG shows sinus rhythm. No acute St changes. Previous records reviewed. H/o CAD s/p SC in 2002 and PCI to the RCA x3. PCI to the RCA ISR and PTCA to the LAD ([facility]) in 2004. Last [facility] 2007- Non-obstructive 3 vessel CAD with 3 patent stents. Preserved EF. Last TTE 07/2016 showed EF 60%, mild diastolic dysfunction. Mild to moderate aortic regurgitation. Mild to moderate mitral regurgitation. Stress test 07/2016- negative for ischemia. Currently pain free. Continues to have "gas pressure" and belching. Check TTE. [facility] recommended. [facility] R/B/A discussed and he agrees to proceed. Continue asa, plavix, statin, and bb. Continue heparin gtt. (2) Coronary artery disease Current Visit: No Status: Acute Continue medications. On asa, plavix, simvistatin, and bb at home. Qualifiers: Coronary Disease-Associated Artery/Lesion type: [place] artery Qualified Code(s): I25.10 - Atherosclerotic heart disease of [place] coronary artery without angina pectoris Discussion w patient/family: The assessment and plan as outlined above was discussed with the patient and/or family members who expressed understanding and agreement. All questions were answered. Thank you for involving us in the care of your patient. Please call with any questions. History of Present Illness Consult date: 05/09/17 Requesting physician: Rylan Ramirez Consult reason: NSTEMI Chief complaint: Chest pain History of present illness: Mr. 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 C/o intermittent sharp left sided chest pain and left arm aching for two hours associated with SOB. The pain would last a few seconds at a time. He was sitting at his computer chair when the pain started. He denies taking anything for his pain. He also c/o increased gas and belching. Troponin found to be elevated at 1.09, 1.06. Cardiology consulted for NSTEMI. Past Med Surg Social Fam HX - Past Medical History Attestation: Yes The following information was validated with the patient. Medical history: coronary artery disease, diabetes, GERD, hyperlipidemia, hypertension, myocardial infarction, renal disease Psychiatric history: no psych history - Past Surgical History Surgical History: angioplasty/stent - Social History Smoking Status: Former smoker Smokeless Tobacco Status: No Alcohol use: none Drug use: none - Family History Mother Living Status: Hx Family Cancer: Yes (breast) Father Living Status: Hx Family Cardiac Disorders: Yes ([place]) Medications and Allergies Aspirin 81 mg PO DAILY 08/08/16 [History] Clopidogrel [Plavix] 75 mg PO DAILY 08/08/16 [History] Ergocalciferol (VITAMIN D2) [Vitamin D2] 50,000 unit PO PETTY 08/08/16 [History] Fenofibrate Nanocrystallized [Triglide] 160 mg PO DAILY 08/08/16 [History] Lisinopril [Zestril] 40 mg PO DAILY 08/08/16 [History] Metoprolol [Lopressor] 25 mg PO BID 08/08/16 [History] Multivitamin [One Daily Multivitamin] 1 each PO DAILY 08/08/16 [History] Simvastatin [Zocor] 20 mg PO HS 08/08/16 [History] Sitagliptin Phosphate [Januvia] 50 mg PO DAILY 05/08/17 [History] amLODIPine [Norvasc] 5 mg PO DAILY 05/08/17 [History] hydroCHLOROthiazide [Hydrochlorothiazide] 25 mg PO DAILY 05/08/17 [History] 3 Allergy/AdvReac Type Severity Reaction Status Date / Time No Known Allergies Allergy Verified 10/25/16 14:17 All Systems Review: The remainder of the systems were reviewed and are negative Physical Examination Vital Signs, Last 4 Hours Temp Pulse Resp BP Pulse Ox 05/09/17 07:49 98.0 F 68 13 143/82 94 General: Conversant, No Apparent Distress HEENT: Atraumatic, Normocephaly, Mucus Membranes Moist Neck: No JVD, Normal carotid pulses Cardiac: Reg Rate and Rhythm, Normal S1 and S2, Other (Grade 2/6 murmur) Lungs: Normal Breath Sounds, No Wheeze, Rales, Rhonchi Neuro: Alert and responsive, No focal deficits noted Abdomen: Soft, Non-Tender Skin: No rashes noted on visualized skin Musculoskeletal: No Chest Wall Tenderness Extremities: No Clubbing, No Cyanosis, No Edema, Normal Pulses Results 05/09/17 02:27 05/09/17 02:27 Lab Results 05/09/17 05/09/17 05/09/17 02:27 02:27 02:27 WBC 7.4 Hgb 12.5 L Hct 37.5 Plt Count 177 APTT Sodium 139 Potassium 3.6 Chloride 103 Carbon Dioxide 29 BUN 23 Creatinine 1.21 Glucose 133 H Calcium 10.1 Troponin I 1.06 H* 05/09/17 04:26 WBC Hgb Hct Plt Count APTT 98.5 H D Sodium Potassium Chloride Carbon Dioxide BUN Creatinine Glucose Calcium Troponin I - Imaging and Cardiology Echo: report reviewed - EKG Interpretation EKG results cardiology: personally reviewed Consult Discharge Plan - Plan Referrals: Rajiv Peguero MD [Primary Care Provider] -
[2017-05-09] MEDS: Lisinopril 20 MG TABLET PO SCH (10:29)
[2017-05-09] MEDS: amLODIPine 5 MG TABLET PO SCH (10:29)
[2017-05-09] MEDS: Aspirin 81 MG TAB.CHEW PO SCH (10:29)
[2017-05-09] MEDS: Fenofibrate 54 MG TABLET PO SCH (10:29)
[2017-05-09] MEDS: hydroCHLOROthiazide 25 MG TABLET PO SCH (10:29)
--- NOTE | 2017-05-09 15:47 | Internal Med Progress Note ---
Date of Encounter: 05/09/17 Time of Encounter: 15:44 - Assessment and plan (1) NSTEMI (non-ST elevated myocardial infarction) Current Visit: Yes Status: Acute Assessment and plan: serial troponin 1.09, 1.06, 1.22. EKG without acute ST changes. Evaluated by cardiology who recommended LHC. Continue asa, plavix, statin, BB, heparin gtt. Echo pending. Cardiology following. (2) Coronary artery disease Current Visit: No Status: Acute Assessment and plan: per hx. With NSTEMI as noted above. Cont home ASA, Plavix, BB, statin. Cardiology following. Plan as noted above. Qualifiers: Coronary Disease-Associated Artery/Lesion type: [place] artery Qualified Code(s): I25.10 - Atherosclerotic heart disease of [place] coronary artery without angina pectoris (3) Diabetes type 2, controlled Current Visit: No Status: Acute Assessment and plan: per hx. SSI. 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 BP variable but acceptable. Cont home BP medication. Monitor BP and titrate PRN Qualifiers: Hypertension type: essential hypertension Qualified Code(s): I10 - Essential (primary) hypertension (5) DVT prophylaxis Current Visit: Yes Status: Acute Assessment and plan: heparin gtt - Subjective Interval history: Seen and examined at bedside. Patient is new to me, information obtained from chart review and patient report. Says he feels well on my exam, no chest pain or shortness of breath. He is aware of cardiology's plan for C this hospitalization. - Constitutional Vitals: Temp Pulse Resp BP Pulse Ox 97.7 F 57 14 153/83 95 05/09/17 10:42 05/09/17 10:42 05/09/17 10:42 05/09/17 10:42 05/09/17 10:42 General appearance: Present: A&O X 3 - Head Head exam: Present: atraumatic, normocephalic - Eye Eye exam: Present: PERRL, conjuntiva pink, sclera anicteric Pupils: Present: PERRL - Neck Neck exam general surgery: Present: supple, trachea midline. Absent: lymphadenopathy - Respiratory Respiratory exam: Present: CTAB. Absent: accessory muscle use, rales, rhonchi, wheezes - Cardiovascular Cardiovascular exam: Present: RRR, +S1, +S2. Absent: diastolic murmur, gallop, rubs, systolic murmur - GI/Abdominal GI/Abdominal exam: Present: normal bowel sounds, soft, no peritoneal signs. Absent: distended, tenderness - Extremities Exam Extremities exam: Present: warm, radial pulses palpable and symmetrical. Absent : calf tenderness, cyanotic, pedal edema - Neurological Exam Neurological exam: Present: CN II-XII intact, oriented X3, no focal deficits. Absent: pronater drift, facial droop, speech deficit - Skin Skin exam: Present: dry, intact Internal Medicine: Result - Labs CBC & Chem 7: 05/09/17 02:27 05/09/17 02:27 Labs: Short CBC 05/09/17 Range/Units 02:27 WBC 7.4 (4.3-11.1) K/mcL Hgb 12.5 L (12.9-16.9) g/dL Hct 37.5 (37.5-50.1) % Plt Count 177 (140-400) K/mcL Neutrophils # 4.1 (1.6-8.9) K/mcL BMP 05/09/17 02:27 Sodium 139 Potassium 3.6 Chloride 103 Carbon Dioxide 29 BUN 23 Creatinine 1.21 Glucose 133 H Calcium 10.1 Cardiac Enzymes 05/09/17 05/09/17 Range/Units 02:27 10:08 Troponin I 1.06 H* 1.22 H* (< 0.04) ng/mL - ABG Interpretation ABG results: PT/INR, D-dimer PT 11.8 Seconds (9.4-12.1) 05/08/17 21:53 Consult Discharge Plan - Plan Referrals: Rajiv Peguero MD [Primary Care Provider] -
[2017-05-09] MEDS ORDERED: *HR* Dextrose 50 % in Water (Syg) 50 ML SYRINGE IVP PRN (15:59)
[2017-05-09] MEDS ORDERED: D5% in Water 1,000 ML IVC PRN (15:59)
[2017-05-09] MEDS ORDERED: Dextrose Gel 15 GM PO PRN ×2 (15:59)
[2017-05-09] MEDS ORDERED: Nitroglycerin 1,000 MCG/10 ML VIAL IV ONE (16:30)
[2017-05-09] MEDS ORDERED: ISOVUE-370 200 ML INFUS..BTL IV ONE (16:30)
[2017-05-09] MEDS ORDERED: *HR* Heparin 10,000 UNIT/10 ML VIAL ONE (16:30)
[2017-05-09] MEDS ORDERED: Heparin 1,000 UNITS/500 mL 500 ML ONE (16:30)
[2017-05-09] MEDS ORDERED: 0.9 % Sodium Chloride 2,000 ML ONE (16:30)
--- NOTE | 2017-05-09 16:35 | Pre-Sedation Evaluation ---
Pre-sedation evaluation - Pre-sedation checklist Date of procedure: 05/09/17 Procedure: heart cath Recent Vitals: Last Vital Signs Temp 97.7 F 05/09/17 10:42 Pulse 57 05/09/17 10:42 Resp 14 05/09/17 10:42 BP 153/83 05/09/17 10:42 Pulse Ox 95 05/09/17 10:42 H&P (including ROS) documented in medical record: Yes Previous reaction to sedatives/anesthetics: No Dietary Status: NPO after Midnight Airway Assessment: Patient can open mouth completely, TMJ function normal, Micrognathia (under-bite, receding chin) absent, Neck with adequate range of motion Dentition: full dentition, dentures removed Possible difficult airway: No ASA Classification *see protocol: CLASS II-Mild systemic disease Plan of Care: Pt appropriate candidate for procedure/moderate/conscious sedation , Risks/benefits of procedure/sedation discussed w/ patient/family
[2017-05-09] MEDS ORDERED: *HR* FentaNYL (PF) 100 MCG/2 ML VIAL ONE (16:49)
[2017-05-09] MEDS ORDERED: *HR* Midazolam HCl 2 MG/2 ML VIAL ONE (16:49)
--- NOTE | 2017-05-09 17:43 | Invasive Diagnostic Lab Proc ---
Name: Vipin Mack Date of Study: 05/09/2017 Date: 1935 Ht: 68.9in Medical Record#: [id number] Age: 82 Wt: 171.96lb Gender: Male BSA: 1.94 Order #: [id number] BMI: 25.47 Physicians Procedure Physician: Izabella Hillman MD, FACC Referring MD: Referring MD: Staff Name Position Time In Alma Kidd RN Boat Designer 04:45 PM Jeanette Terrazas RT (R) Monitor 04:45 PM Martha Hernandez RT (R) Scrub 04:45 PM Indications Indication Non-Stemi Procedures Performed Procedure L HRT ARTERY/VENTRICLE ANGIO Pre-Procedure Checklist Informed consent is complete signed and on chart. H&P is on chart. ID band is on and ID verified with patient. Patient NPO for procedure The procedure was described for the patient and questions were answered. ECG is on chart. Plan of Care Patient will tolerate the procedure without complications. Adequate level of comfort will be maintained. Hemodynamics will remain stable Patient will recover from procedure without complications. Respiratory function will be maintained. Cardiac rhythm will remain stable. Patient temperature will be maintained. Patient and/or family have verbalized understanding of the procedure. Patient Education Chief Complaint/Reason for Test: Cardiac Cath Developmental Category: Geriatric (65+ years) Developmentally Appropriate for Age: Yes Learning Barriers: None Education Needs: Procedure Education Method: Verbal Information Taught: Cardiac Cath Educational Evaluation: Able to repeat information Intravenous Access Time IV Size Location DC'd Fluid/Drip Rate Units RN 20g 1 /" Patent On Arrival Lt Antecubital 0.9NaCl 25 ml/hr Allergies NKDA Vital Signs Time BP (mmHg) HR (bpm) O2 Sat. RR (bpm) LOC 04:46 PM / % 5 = Fully awake and oriented or at pre-proc level 04:46 PM / % 5 = Fully awake and oriented or at pre-proc level 04:56 PM / % 4 = Oriented but drowsy 04:59 PM 179 / 91 75 97 % 15 05:03 PM 156 / 81 66 96 % 13 05:08 PM 166 / 82 68 96 % 14 05:13 PM 149 / 85 70 96 % 14 05:18 PM 152 / 77 61 96 % 14 Procedural Medications Time Medication Dose Units Method Given By 04:57 PM Oxygen 2 L/min nasal cannula Alma Kidd RN 05:00 PM Versed 1 mg Intravenous Alma Kidd RN 05:00 PM Fentanyl 25 mcg Intravenous Alma Kidd RN 05:04 PM Lidocaine 2% 19 ml Subcutaneous Izabella Hillman MD, [facility] ASA Classification: CLASS II- Mild systemic disease (i.e. well-controlled diabetes, hypertension, asthma, cigarette smoking) Ray Score Preprocedure Postprocedure Activity 2- Moves 4 extremities sustained head lift Activity 2- Moves 4 extremities sustained head lift Circulation 2- SBP +/= 20 points of pre-anesthetic level Circulation 2- SBP +/= 20 points of pre-anesthetic level Consciousness 2- Awake and alert oriented x 3 Consciousness 2- Awake and alert oriented x 3 O2 Saturation 2- Able to maintain O2 satruation of 92% on room air O2 Saturation 2- Able to maintain O2 satruation of 92% on room air Respiratory 2- Able to deep breathe and cough well Respiratory 2- Able to deep breathe and cough well Total Score 10 Total Score 10 Contrast Agent: Isovue Diagnostic Contrast: 65 ml Total Contrast: 65 ml Fluoro Dose: 65 mGy Procedure Log Time Note Enter By 04:45 PM 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 ell 04:46 PM Case Delayed No ell:46 PM Time: 16:46 Patient comfortable and pain free: Yes :46 PM Time: 16:46LOC: 5 = Fully awake and oriented or at pre-proc level dspell:46 PM CathStat 04:54 PM Physician arrived 16:54 dspell 04:55 PM Case Start 04:55 PM Meet and greet completed :55 PM Sign in performed according to hospital policy. [email or web address] 04:55 PM Procedure start 16:55 PM ASA Class CLASS II- Mild systemic disease (i.e. well-controlled diabetes, hypertension, asthma, cigarette smoking) PM Hair removed from procedure site in holding area using clippers. Bilateral groin prepped with Chloraprep by Martha Hernandez (R), then patient was draped. Skin intact. PM Time: 16:46 Patient comfortable and pain free: Yes PM Time: 16:46LOC: 5 = Fully awake and oriented or at pre-proc level dsp:57 PM Vitals capture started with the following parameters, Patient=Adult, Interval=5 min, Initial Fdnpclld=872 mmHg, Deflation Rate=3 mmHg, Cuff placed on Right Arm 04:57 PM Time: 16:57 Oxygen on at 2 L/min per nasal cannula by Alma Kidd RN :58 PM Clinical Presentation: Non-STEMI 59 PM HR=75 bpm, SNFS=626/91 mmhg, SpO2=97.0 %, Resp=15 B/min, Comment=Sinus 05:00 PM Time: 17:00 Versed 1 mg Intravenous Given by Alma Kidd RN [facility] 05:00 PM Time: 17:00 Fentanyl 25 mcg Intravenous Given by Alma Kidd RN [facility] 05:02 PM Pressure channel 1 zeroed. 05:03 PM HR=66 bpm, PQMJ=327/81 mmhg, SpO2=96.0 %, Resp=13 B/min, Comment=Sinus 05:04 PM Time out performed according to hospital policy PM Time: 17:04 19 ml Lidocaine 2% to right groin Subcutaneous Given by Izabella Hillman MD, [facility] :05 PM Access obtained by percutaneous puncture. 5Fr 10cm Terumo [place] sheath placed in right Femoral artery. [id number] 05:06 PM 5Fr FL 4 catheter inserted over the wire [facility] 05:06 PM LCA angiography performed in multiple views. ell 05:06 PM Recorded Pressure: Ao, HR=65, Condition=Condition 1 (Aorta) Ao 160/79/111 05:08 PM Recorded Pressure: Ao, HR=69, Condition=Condition 1 (Aorta) Ao 149/77/109 05:08 PM HR=68 bpm, NYQC=416/82 mmhg, SpO2=96.0 %, Resp=14 B/min, Comment=Sinus 05:08 PM Catheter removed dspell 05:08 PM 5Fr FR 4 catheter inserted over the wire [facility] dspell 05:09 PM RCA angiography performed in multiple views. [email or web address] 05:10 PM Catheter removed dspell 05:10 PM 5Fr Pigtail catheter inserted over the wire [facility] dspellman 05:10 PM Catheter selectively placed in left ventricle dspell 05:10 PM Bolus angiogram of left Ventricle complete: 8 ml/sec for a total of 24 mls dspell 05:11 PM Pressure channel 1 zeroed. 05:11 PM Recorded Pressure: LV, HR=70, Condition=Condition 1 (Left Ventricle) LV 143/6/6 05:11 PM Recorded Pressure: LV, Ao, HR=68, Condition=Condition 1 (Left Ventricle) LV 135/20/33, (Aorta) Ao 136/81/107 05:12 PM Time: 16:56LOC: 4 = Oriented but drowsy dspell 05:12 PM Time: 16:56 Patient comfortable and pain free: Yes dspell 05:12 PM Catheter removed dspellman 05:13 PM Recorded Pressure: RFA, HR=67, Condition=Condition 1 (Right Femoral Artery) RFA 163/66/102 05:13 PM HR=70 bpm, BYBZ=285/85 mmhg, SpO2=96.0 %, Resp=14 B/min, Comment=Sinus 05:13 PM Bolus angiogram of right Femoral complete: 4 ml/sec for a total of 7 mls dspellman 05:14 PM Procedure completed at 17:14 dspell 05:14 PM Did you address ADRYAN flow and Dominance? Yes dspellman 05:15 PM Sign out completed: Radiation Dose 115.37 mGy Fluoro Time: 1.1 Isovue 370 - 200ml contrast 65 ml given by Izabella Hillman MD, [facility]. Complications: NoneCardiac Rehab Consult needed: NoConfirmed administered medications: Yes dspellman 05:15 PM Isovue 370 - 200ml,1 Bottle(s) used. dspellman 05:15 PM Arterial sheath pulled, Mynx closure device used and was Successful [id number] S/N. 05:15 PM Estimated Blood Loss: minimal dsp 05:16 PM Post ECG Sinus dspell 05:16 PM Post Blood Pressure 149/85 dspell 05:16 PM 17:16 Post Pulses Bilateral DP & PT 2+ dsp 05:17 PM Information taught Cardiac Cath and Mynx 05:17 PM Education needs Procedure, Plan of Care, and Responsibilities of Patient in Care 05:17 PM Learning barriers :None 05:17 PM Education Methods Verbal 05:17 PM Education evaluation Able to repeat information 05:18 PM Site status No bleeding/hematoma - Rt Groin as reported by Martha Hernandez RT (R) at 17:17 05:18 PM Opsite applied dsp 05:18 PM HR=61 bpm, QWGN=925/77 mmhg, SpO2=96.0 %, Resp=14 B/min, Comment=Sinus 05:19 PM Family placed in consult room. 05:19 PM Complications: None 05:19 PM Fluoro Time: 1.1 05:19 PM Isovue 370 - 200ml contrast [address] Izabella Hillman. 05:19 PM Radiation Dose 65 mGy dsp 05:23 PM Lesion found in Mid LAD. Pre Stenosis: 35 Pre ADRYAN Flow: 3: Complete and Brisk Flow/Perfusion dsp 05:24 PM Lesion found in Proximal RCA. Pre Stenosis: 20 Pre ADRYAN Flow: 3: Complete and Brisk Flow/Perfusion 05:27 PM Time: 17:12 Patient comfortable and pain free: Yes 05:32 PM Report given to Rodriguez CEJA Pt taken to ED [facility] Room #33. 17:32 dsp 05:33 PM Delay to floor Receiving unit staff issue dspell 05:33 PM Patient out of room: 17:33 dspell Complications Complication None None Hemodynamics Pressures Site Systolic/A Wave Diastolic/V Wave Mean AO 160 79 111 AO 149 77 109 LV 143 6 6 LV 135 20 33 AO 136 81 107 RFA 163 66 102 Post Procedure Information Blood Pressure: 149/85 mmHg Rhythm: Sinus Post procedural instructions were given Closure Device Time Device Success/Fail 05/09/2017 5:20:00 PM MynxGrip Successful Site Checks Time Location Status Staff Sheath In? Note 05:17 PM Rt Groin No bleeding/hematoma Martha Hernandez RT (R) Pulses Time Site Pre-Procedure Post-Procedure Note Bilateral DP & PT 2+ 5:16:00 PM Bilateral DP & PT 2+ Updated by Jeanette Terrazas, RT (R) on 05/09/2017 5:35:01 PM Jeanette Terrazas RT electronically signed on 05/09/2017 5:35:41 PM with status of Final
[2017-05-09] MEDS: Insulin LISPRO 300 UNITS/3 ML VIAL SQ SCH ×2 (21:05→23:20)
[2017-05-10 05:58] LABS: Hematocrit 37.1 % (37.5-50.1); Hemoglobin 12.4 g/dL (12.9-16.9); Mean Corpuscular HGB Conc 33.4 g/dL (31.6-35.5); Mean Corpuscular Hemoglobin 29.9 pg (28.0-33.3); Mean Corpuscular Volume 89.4 fL (83.0-100.0); Mean Platelet Volume 10.3 fL (9.4-12.4); Platelet Count 170 K/mcL (140-400); Red Blood Count 4.15 M/mcL (4.19-5.50); Red Cell Distribution Width 13.4 % (11.5-14.5)
[2017-05-10 06:20] LABS: Calcium 9.3 mg/dL (8.6-10.3); Potassium 3.9 mEq/L (3.5-5.1)
--- NOTE | 2017-05-10 06:39 | Electrocardiograph Report ---
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
--- NOTE | 2017-05-10 06:41 | Electrocardiograph Report ---
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
[2017-05-10 08:24] LABS: Estimated Average Glucose 154 mg/dl
--- NOTE | 2017-05-10 08:28 | Cardiology Progress Note ---
Date of Encounter: 05/10/17 Time of Encounter: 10:00 Assessment and Plan (1) NSTEMI (non-ST elevated myocardial infarction) Current Visit: Yes Status: Acute Troponin elevation at 1.09, 1.06, 1.22. EKG shows sinus rhythm. No acute St changes. LHC completed 05/09/17 showed non-obstructive 3 vessel CAD. Patent stents in the pLAD and mRCA. No intervention. Last TTE 07/2016 showed EF 60%, mild diastolic dysfunction. Mild to moderate aortic regurgitation. Mild to moderate mitral regurgitation. Re-peat TTE pending. Continue asa, plavix, statin, and bb, amlodipine. Add NTG SL to medication regimen. NTG indication, use, and side effects reviewed. Out-pt f/u will be scheduled with [facility]. Cardiac rehab consulted. (2) Coronary artery disease Current Visit: No Status: Acute LHC completed showed non-obstructive 3 vessel CAD. No intervention required. There was a 25% instent restenosis in the Proximal LAD.40% stenosis in the Mid LAD. 30% stenosis in the Proximal Circumflex.30% stenosis in the Mid Circumflex. 20% instent restenosis in the Proximal RCA. 40% stenosis in the Proximal RCA. 30% stenosis in the Distal RCA. Continue medications. On asa, plavix, simvistatin, and bb at home. Add NTG SL. Qualifiers: Coronary Disease-Associated Artery/Lesion type: [place] artery [place] vs. transplanted heart: [place] heart Associated angina: without angina Qualified Code(s): I25.10 - Atherosclerotic heart disease of [place] coronary artery without angina pectoris (3) Acute kidney injury Current Visit: Yes Status: Acute Acute kidney injury. H/o CKD. Preserved EF on telemetry. Agree with IV fluid. Monitor closely. (4) Bradycardia Current Visit: Yes Status: Acute Telemetry review shows avg HR 51. HR as low as 47 during nocturnal hours. No significant pauses. He is asymptomatic. Decrease metoprolol to 12.5 mg BID. Discussion w patient/family: The assessment and plan as outlined above was discussed with the patient and/or family members who expressed understanding and agreement. All questions were answered. Thank you for involving us in the care of your patient. Please call with any questions. Subjective Principal diagnosis: NSTEMI Interval history: Mr. Mack denies recurrent chest pain or gas pain. Denies SOB. No events overnight. Objective Vital Signs, Last 4 Hours Temp Pulse Resp BP Pulse Ox 05/10/17 07:38 98.2 F 45 16 120/61 94 General: Conversant, No Apparent Distress HEENT: Atraumatic, Normocephaly, Mucus Membranes Moist Neck: No JVD, Normal carotid pulses Cardiac: Reg Rate and Rhythm, Normal S1 and S2, No Murmur Lungs: Normal Breath Sounds, No Wheeze, Rales, Rhonchi Neuro: Alert and responsive, No focal deficits noted Abdomen: Soft, Non-Tender Skin: No rashes noted on visualized skin Musculoskeletal: No Chest Wall Tenderness Extremities: No Clubbing, No Cyanosis, No Edema, Normal Pulses, Other (Right femoral access site dressing removed. ) Results 05/10/17 05:20 05/10/17 05:20 Lab Results 05/09/17 05/10/17 05/10/17 20:09 05:20 05:20 WBC 7.3 Hgb 12.4 L Hct 37.1 L Plt Count 170 APTT 29.4 D Sodium 138 Potassium 3.9 Chloride 103 Carbon Dioxide 28 BUN 26 H Creatinine 1.40 H Glucose 151 H Calcium 9.3 - Imaging and Cardiology Echo: pending - EKG Interpretation EKG results cardiology: personally reviewed Consult Discharge Plan - Plan Referrals: Rajiv Peguero MD [Primary Care Provider] -
[2017-05-10] MEDS: Insulin LISPRO 300 UNITS/3 ML VIAL SQ SCH ×4 (08:30→20:38)
[2017-05-10] MEDS ORDERED: Nitroglycerin 0.4 MG TAB.SUBL SL PRN (10:11)
--- NOTE | 2017-05-10 10:23 | Discharge Summary ---
Orders not resulted at time of discharge: Pending orders 05/10/17 10:12 EV echocardiogram Routine Date of Encounter: 05/10/17 Time of Encounter: 10:19 - Discharge Diagnosis (1) NSTEMI (non-ST elevated myocardial infarction) Priority: Primary Status: Acute Comments: serial troponin 1.09, 1.06, 1.22. EKG without acute ST changes. Heparin gtt started on arrival. 05/09/17 LHC showed non-obstructive 3 vessel CAD with patent stents to pLAD and mRCA; no intervention required. Continue asa, plavix, statin , BB, amlodipine, SL nitro. Cardiology followed. Outpatient follow-up with [facility]. TTE pending, anticipate discharge once resulted (2) Coronary artery disease Priority: Primary Status: Acute Comments: per hx. 05/09/17 LHC showed non-obstructive 3 vessel CAD with patent stents to pLAD and mRCA; no intervention required. TTE with EF . Continue asa, plavix, statin, BB, amlodipine, SL nitro. Cardiology followed. Outpatient follow-up with [facility] Qualifiers: Coronary Disease-Associated Artery/Lesion type: [place] artery [place] vs. transplanted heart: [place] heart Associated angina: without angina Qualified Code(s): I25.10 - Atherosclerotic heart disease of [place] coronary artery without angina pectoris (3) Diabetes type 2, controlled Priority: Secondary Status: Acute Comments: per hx. Blood sugars controlled. Continue home diabetes medication regimen. Qualifiers: Diabetes mellitus long term care pharmacist insulin use: without prison use Diabetes mellitus complication status: without complication Qualified Code(s): E11.9 - Type 2 diabetes mellitus without complications (4) Hypertension Priority: Secondary Status: Acute Comments: per hx. BP controlled. Cont home BP medications Qualifiers: Hypertension type: essential hypertension Qualified Code(s): I10 - Essential (primary) hypertension (5) Acute kidney injury Priority: Primary Status: Acute Comments: Cr 1.4 after LHC. Appears to have some component of CKD. Gentle IV fluids. Monitor repeat renal function. (6) Bradycardia Priority: Primary Status: Acute Comments: with HRs in 40s-50s at times. Asymptomatic. Home BB decreased per cardiology. Hospital course: See assessment and plan for Hospital course Discharge discussed with: patient - Time Spent with Patient Total time spent providing and/or coordinating discharge services: Less than 30 minutes - Discharge Medications Prescriptions: Nitroglycerin 0.4 mg SL Q5MIN PRN #30 tab.subl PRN Reason: Chest Pain Metoprolol [Lopressor] 12.5 mg PO BID #30 tablet Home Medications: Aspirin 81 mg PO DAILY 08/08/16 [History] Clopidogrel [Plavix] 75 mg PO DAILY 08/08/16 [History] Ergocalciferol (VITAMIN D2) [Vitamin D2] 50,000 unit PO PETTY 08/08/16 [History] Fenofibrate Nanocrystallized [Triglide] 160 mg PO DAILY 08/08/16 [History] Lisinopril [Zestril] 40 mg PO DAILY 08/08/16 [History] Multivitamin [One Daily Multivitamin] 1 each PO DAILY 08/08/16 [History] Simvastatin [Zocor] 20 mg PO HS 08/08/16 [History] Sitagliptin Phosphate [Januvia] 50 mg PO DAILY 05/08/17 [History] amLODIPine [Norvasc] 5 mg PO DAILY 05/08/17 [History] hydroCHLOROthiazide [Hydrochlorothiazide] 25 mg PO DAILY 05/08/17 [History] Metoprolol [Lopressor] 12.5 mg PO BID #30 tablet 05/10/17 [Rx] Nitroglycerin 0.4 mg SL Q5MIN PRN #30 tab.subl 05/10/17 [Rx] Allergies/Adverse Reactions: 3 Allergy/AdvReac Type Severity Reaction Status Date / Time No Known Allergies Allergy Verified 10/25/16 14:17 Date of admission: 05/09/17 16:04 Primary care physician: Rajiv Peguero MD Discharging clinician: Mackenzie Garcia Anticipated date of discharge: 05/10/17 - Constitutional Vitals: Temp Pulse Resp BP Pulse Ox 98.2 F 45 16 120/61 94 05/10/17 07:38 05/10/17 07:38 05/10/17 07:38 05/10/17 07:38 05/10/17 07:38 General appearance: Present: A&O X 3, no acute distress - Head Head exam: Present: atraumatic, normocephalic - Eye Eye exam: Present: PERRL, conjuntiva pink, sclera anicteric Pupils: Present: PERRL - Neck Neck exam general surgery: Present: supple, trachea midline. Absent: lymphadenopathy - Respiratory Respiratory exam: Present: CTAB. Absent: accessory muscle use, rales, rhonchi, wheezes - Cardiovascular Cardiovascular exam: Present: RRR, +S1, +S2. Absent: diastolic murmur, gallop, rubs, systolic murmur - GI/Abdominal GI/Abdominal exam: Present: normal bowel sounds, soft, no peritoneal signs. Absent: distended, tenderness - Extremities Exam Extremities exam: Present: warm, radial pulses palpable and symmetrical. Absent : calf tenderness, cyanotic, pedal edema Additional comments: s/p right groin LHC site with dressing C/D/I - Neurological Exam Neurological exam: Present: CN II-XII intact, oriented X3, no focal deficits. Absent: pronater drift, facial droop, speech deficit - Skin Skin exam: Present: dry, intact - Patient Status Disposition: Home, Self-Care Condition: Good - Discharge Instructions Instructions: Metoprolol (By mouth), Nitroglycerin (By mouth), Nitroglycerin, Rapid Release (By mouth), Myocardial Infarction (DC), Right Heart Catheterization (DC) Follow Up With: Rajiv Peguero MD [Primary Care Provider] - (Please call within 1-2 weeks for follow-up appointment web request sent) Additional Instructions: RISK FACTORS: STOP SMOKING: If you smoke, STOP. Smoking or tobacco use significantly increases your risk of heart disease because nicotine causes the arteries to narrow or constrict. It also causes fats to stick to the artery. Your chances of having a heart attack are greatly increased if you continue to smoke. For more information, call the education line for smoking cessation 6-651-XUMABQQ EAT A LOW FAT/CHOLESTEROL/SODIUM DIET: This diet may help reduce your chances of having a heart attack. LIFTING: Avoid lifting anything more than 10 pounds for 5-7 days Prior to straining, laughing, sneezing and/or coughing, apply manual pressure directly over insertion site. ACTIVITY: You may walk or climb stairs as tolerated You can resume sexual activity as tolerated In general, you are encouraged to engage in a minimum of 30 minutes or more of moderate intensity physical activity, such as brisk walking, daily or at least 3 -4 times weekly BATHING Do not submerge the site into water (bath tub, hot tub, swimming pool) for 1 week. This can be a source for infection into the blood stream. You may shower after 24 hours SITE CARE: After 24 hours, you may remove the dressing and leave the site open to air. Keep the site clean and dry. Clean gently and pat dry. You can expect bruising and tenderness that gradually resolve within a week or two. Return to work as instructed per your physician Resume driving as instructed per physician Keep all scheduled follow up appointments Resume medications as instructed IMPORTANT: If prescribed a Platelet Aggregation Inhibitor such as, Plavix, Brilinta or Effient: Duration of therapy is minimum one year These medications are often used in combination with Aspirin in prevention of future heart attacks Never discontinue unless consult with your Returned Goods Receiving Clerk STROKE (CVA) Risk factors for a stroke are: Age, cigarette smoking, diabetes, excessive alcohol consumption, family history, high blood pressure, overweight, physical inactivity, prior stroke, heart attack, diagnosis of carotid artery stenosis or other artery disease. Warning signs: Sudden numbness or weakness of the face, arm or leg; especially on one side of the body, sudden confusion, trouble speaking or understanding, sudden trouble seeing in one or both eyes, sudden trouble walking, dizziness, loss of balance or coordination, sudden severe headache with no cause. Call 911 or go to the Emergency Room. CONGESTIVE HEART FAILURE: If you have been diagnosed with Congestive Heart Failure (CHF) and your symptoms return, make an appointment with your physician Weigh yourself daily. Notify your physician if you have a weight gain of two or more pounds in one day or five or more pounds in one week. If you experience any difficulty breathing, please call 911 BLEEDING: Although the risk of bleeding is minimal, it can happen. If you have any bleeding from the site, apply firm pressure above the puncture site for 10-15 minutes. If the bleeding does not stop, continue manual pressure and call 911 Contact your physician if: You develop a fever greater than 101 degrees Fahrenheit Your site becomes reddened or has any drainage You have an increase in pain or burning at the site or if a large knot forms at the site. If you experience chest pain, shortness of breath, dizziness, or extreme tiredness, stop the activity and rest. Please notify your physicians office if you experience any of these symptoms and they are not relieved by rest please call 911!
[2017-05-10] MEDS: hydroCHLOROthiazide 25 MG TABLET PO SCH (10:35)
[2017-05-10] MEDS: Fenofibrate 54 MG TABLET PO SCH (10:35)
[2017-05-10] MEDS: Lisinopril 20 MG TABLET PO SCH (10:35)
[2017-05-10] MEDS: Aspirin 81 MG TAB.CHEW PO SCH (10:36)
[2017-05-10] MEDS: amLODIPine 5 MG TABLET PO SCH (10:36)
[2017-05-10] MEDS: 0.9 % Sodium Chloride 1,000 ML IVC SCH (10:36)
[2017-05-11 04:56] LABS: Hematocrit 35.1 % (37.5-50.1); Hemoglobin 11.8 g/dL (12.9-16.9); Mean Corpuscular HGB Conc 33.6 g/dL (31.6-35.5); Mean Corpuscular Hemoglobin 29.6 pg (28.0-33.3); Mean Corpuscular Volume 88.2 fL (83.0-100.0); Mean Platelet Volume 10.2 fL (9.4-12.4); Platelet Count 157 K/mcL (140-400); Red Blood Count 3.98 M/mcL (4.19-5.50); Red Cell Distribution Width 13.4 % (11.5-14.5)
[2017-05-11 05:09] LABS: Calcium 9.1 mg/dL (8.6-10.3); Potassium 3.9 mEq/L (3.5-5.1)
[2017-05-11] MEDS: 0.9 % Sodium Chloride 1,000 ML IVC SCH ×2 (05:43→12:26)
[2017-05-11] MEDS ORDERED: 0.9 % Sodium Chloride 500 ML IVC ONE (07:42)
--- NOTE | 2017-05-11 08:14 | Cardiology Progress Note ---
Date of Encounter: 05/11/17 Time of Encounter: 08:09 Assessment and Plan (1) NSTEMI (non-ST elevated myocardial infarction) Current Visit: Yes Status: Acute Troponin elevation at 1.09, 1.06, 1.22. EKG shows sinus rhythm. No acute St changes. LHC completed 05/09/17 showed mild to moderate non-obstructive 3 vessel CAD. Patent stents in the pLAD and mRCA. No intervention. Last TTE 07/2016 showed EF 60%, mild diastolic dysfunction. Mild to moderate aortic regurgitation. Mild to moderate mitral regurgitation. TTE this admission shows preserved EF. Mild to moderate aortic regurgitation. Mild aortic sclerosis. Continue asa, plavix, statin, and bb, amlodipine. Add NTG SL to medication regimen. NTG indication, use, and side effects reviewed. Heparin gtt was stopped. If patient is not going home start DVT prophylaxis. Out-pt f/u will be scheduled with [facility]. Cardiac rehab consulted. Out-pt f/u will be scheduled with [facility]. Cardiology will sign off. (2) Coronary artery disease Current Visit: No Status: Acute LHC completed showed non-obstructive 3 vessel CAD. No intervention required. There was a 25% instent restenosis in the Proximal LAD.40% stenosis in the Mid LAD. 30% stenosis in the Proximal Circumflex.30% stenosis in the Mid Circumflex. 20% instent restenosis in the Proximal RCA. 40% stenosis in the Proximal RCA. 30% stenosis in the Distal RCA. Continue medications. On asa, plavix, simvistatin, and bb at home. Add NTG SL. Qualifiers: Coronary Disease-Associated Artery/Lesion type: [place] artery [place] vs. transplanted heart: [place] heart Associated angina: without angina Qualified Code(s): I25.10 - Atherosclerotic heart disease of [place] coronary artery without angina pectoris (3) Acute kidney injury Current Visit: Yes Status: Acute Acute kidney injury. H/o CKD. Preserved EF on telemetry. Agree with IV fluid. Give 500 cc bolus. Avoid nephrotoxins. Hold lisinopril and HCTZ. Restart when able. Monitor closely. (4) Bradycardia Current Visit: Yes Status: Acute Telemetry review shows avg HR 51. HR as low as 47 during nocturnal hours yesterday. Metoprolol decreased to 12.5 mg BID yesterday. Last 24 hour avg HR 56 bpm. Min HR 50. No pauses seen. He is asymptomatic. Continue to monitor. Discussion w patient/family: The assessment and plan as outlined above was discussed with the patient and/or family members who expressed understanding and agreement. All questions were answered. Thank you for involving us in the care of your patient. Please call with any questions. Above plan of care was reviewed with Dr. Gupta. Subjective Principal diagnosis: NSTEMI Interval history: Mr. Mack denies recurrent chest pain or gas pain. Denies SOB. No events overnight. Objective Vital Signs, Last 4 Hours Temp Pulse Resp BP Pulse Ox 05/11/17 07:26 98.1 F 53 15 117/63 92 Results 05/11/17 04:16 05/11/17 04:16 Lab Results 05/11/17 05/11/17 04:16 04:16 WBC 8.2 Hgb 11.8 L Hct 35.1 L Plt Count 157 Sodium 139 Potassium 3.9 Chloride 104 Carbon Dioxide 29 BUN 30 H Creatinine 1.43 H Glucose 133 H Calcium 9.1 - Imaging and Cardiology Echo: pending - EKG Interpretation EKG results cardiology: personally reviewed Consult Discharge Plan - Plan Instructions: Metoprolol (By mouth), Nitroglycerin (By mouth), Nitroglycerin, Rapid Release (By mouth), Myocardial Infarction (DC), Right Heart Catheterization (DC) Additional Instructions: RISK FACTORS: STOP SMOKING: If you smoke, STOP. Smoking or tobacco use significantly increases your risk of heart disease because nicotine causes the arteries to narrow or constrict. It also causes fats to stick to the artery. Your chances of having a heart attack are greatly increased if you continue to smoke. For more information, call the education line for smoking cessation 2-449-XYPSPJD EAT A LOW FAT/CHOLESTEROL/SODIUM DIET: This diet may help reduce your chances of having a heart attack. LIFTING: Avoid lifting anything more than 10 pounds for 5-7 days Prior to straining, laughing, sneezing and/or coughing, apply manual pressure directly over insertion site. ACTIVITY: You may walk or climb stairs as tolerated You can resume sexual activity as tolerated In general, you are encouraged to engage in a minimum of 30 minutes or more of moderate intensity physical activity, such as brisk walking, daily or at least 3 -4 times weekly BATHING Do not submerge the site into water (bath tub, hot tub, swimming pool) for 1 week. This can be a source for infection into the blood stream. You may shower after 24 hours SITE CARE: After 24 hours, you may remove the dressing and leave the site open to air. Keep the site clean and dry. Clean gently and pat dry. You can expect bruising and tenderness that gradually resolve within a week or two. Return to work as instructed per your physician Resume driving as instructed per physician Keep all scheduled follow up appointments Resume medications as instructed IMPORTANT: If prescribed a Platelet Aggregation Inhibitor such as, Plavix, Brilinta or Effient: Duration of therapy is minimum one year These medications are often used in combination with Aspirin in prevention of future heart attacks Never discontinue unless consult with your Business Office Specialist STROKE (CVA) Risk factors for a stroke are: Age, cigarette smoking, diabetes, excessive alcohol consumption, family history, high blood pressure, overweight, physical inactivity, prior stroke, heart attack, diagnosis of carotid artery stenosis or other artery disease. Warning signs: Sudden numbness or weakness of the face, arm or leg; especially on one side of the body, sudden confusion, trouble speaking or understanding, sudden trouble seeing in one or both eyes, sudden trouble walking, dizziness, loss of balance or coordination, sudden severe headache with no cause. Call 911 or go to the Emergency Room. CONGESTIVE HEART FAILURE: If you have been diagnosed with Congestive Heart Failure (CHF) and your symptoms return, make an appointment with your physician Weigh yourself daily. Notify your physician if you have a weight gain of two or more pounds in one day or five or more pounds in one week. If you experience any difficulty breathing, please call 911 BLEEDING: Although the risk of bleeding is minimal, it can happen. If you have any bleeding from the site, apply firm pressure above the puncture site for 10-15 minutes. If the bleeding does not stop, continue manual pressure and call 911 Contact your physician if: You develop a fever greater than 101 degrees Fahrenheit Your site becomes reddened or has any drainage You have an increase in pain or burning at the site or if a large knot forms at the site. If you experience chest pain, shortness of breath, dizziness, or extreme tiredness, stop the activity and rest. Please notify your physicians office if you experience any of these symptoms and they are not relieved by rest please call 911! Referrals: Rajiv Peguero MD [Primary Care Provider] - (Please call within 1-2 weeks for follow-up appointment web request sent) Prescriptions: Nitroglycerin 0.4 mg SL Q5MIN PRN #30 tab.subl PRN Reason: Chest Pain Metoprolol [Lopressor] 12.5 mg PO BID #30 tablet
[2017-05-11] MEDS: Aspirin 81 MG TAB.CHEW PO SCH (08:43)
[2017-05-11] MEDS: amLODIPine 5 MG TABLET PO SCH (08:43)
[2017-05-11] MEDS: Fenofibrate 54 MG TABLET PO SCH (08:43)
[2017-05-11] MEDS: Insulin LISPRO 300 UNITS/3 ML VIAL SQ SCH ×2 (08:44→12:27)
[2017-05-11 11:04] VITALS: BP 133/70
[2017-05-11] MEDS ORDERED: *HR* Heparin 5,000 UNIT/ML VIAL SQ SCH (18:00)
== END 2017-05-11 14:38 | disposition home or self-care (01) | DRG 281 ==
LOC: 2SOUTHHOLD 19:57 → EMEROO 19:57 → 2SOUTHHOLD 05-09 01:16 → 2ANU 05-09 19:53
PROVIDERS: ADMIT Internal Medicine Hematology & Oncology; ATTEND Internal Medicine Hematology & Oncology

== ENCOUNTER 2017-12-08 07:05 | Inpatient (IN) ==
[2017-12-08] MEDS ORDERED: Ondansetron 4 MG/2 ML VIAL IVP ONE (07:30)
--- NOTE | 2017-12-08 07:48 | Emergency Department Note ---
Disposition Clinical Impression: NSTEMI (non-ST elevated myocardial infarction), Belching Abdominal pain Qualifiers: Abdominal location: unspecified location Qualified Code(s): R10.9 - Unspecified abdominal pain Disposition: Admitted As Inpatient Condition: Fair General Adult HPI - General Chief complaint: ED Abdominal Pain Stated complaint: Abd Pain Time Seen by Provider: 12/08/17 07:14 - History of Present Illness Pain Scale: 10 - Related Data Home Medications Medication Instructions Recorded Confirmed Aspirin 81 mg PO DAILY 08/08/16 12/08/17 Clopidogrel [Plavix] 75 mg PO DAILY 08/08/16 12/08/17 Ergocalciferol (VITAMIN D2) 50,000 unit PO PETTY 08/08/16 12/08/17 [Vitamin D2] Lisinopril [Zestril] 40 mg PO DAILY 08/08/16 12/08/17 Multivitamin [One Daily 1 each PO DAILY 08/08/16 12/08/17 Multivitamin] Simvastatin [Zocor] 20 mg PO HS 08/08/16 12/08/17 Sitagliptin Phosphate [Januvia] 50 mg PO DAILY 05/08/17 12/08/17 amLODIPine [Norvasc] 5 mg PO DAILY 05/08/17 12/08/17 hydroCHLOROthiazide 25 mg PO DAILY 05/08/17 12/08/17 [Hydrochlorothiazide] Pantoprazole Sodium [Protonix] 40 mg PO DAILY 12/08/17 12/08/17 Previous Rx's Medication Instructions Recorded Metoprolol [Lopressor] 12.5 mg PO BID #30 tablet 05/10/17 Allergies Allergy/AdvReac Type Severity Reaction Status Date / Time No Known Allergies Allergy Verified 12/08/17 07:10 Past Medical History - Past Medical History Medical history: Reports: coronary artery disease, diabetes, GERD, hyper lipidemia, hypertension, myocardial infarction, renal disease Surgical history: Reports: angioplasty/stent Psychiatric history: Reports: no psych history - Social History Smoking Status: Former smoker Smokeless Tobacco Status: No Alcohol use: Reports: none Drug use: Reports: none Course Vital Signs Temperature 97.7 F 12/08/17 07:10 Pulse Rate 79 12/08/17 07:10 Respiratory Rate 16 12/08/17 07:10 Blood Pressure 146/64 12/08/17 07:10 O2 Sat by Pulse Oximetry 97 12/08/17 07:10 Temperature 97.7 F 12/08/17 11:22 Pulse Rate 64 12/08/17 11:22 Respiratory Rate 16 12/08/17 11:22 Blood Pressure 169/86 12/08/17 11:22 O2 Sat by Pulse Oximetry 92 12/08/17 11:22 Oxygen Delivery Oxygen Delivery Room Air Medical Decision Making - Lab Data Result diagrams: 12/08/17 07:40 12/08/17 07:40 Lab Results 12/08/17 12/08/17 12/08/17 Range/Units 07:40 07:40 07:40 WBC 8.5 (4.3-11.1) K/mcL RBC 4.29 (4.19-5.50) M/mcL Hgb 12.7 L (12.9-16.9) g/dL Hct 38.7 (37.5-50.1) % MCV 90.2 (83.0-100.0) fL MCH 29.6 (28.0-33.3) pg MCHC 32.8 (31.6-35.5) g/dL RDW 13.2 (11.5-14.5) % Plt Count 187 (140-400) K/mcL MPV 9.7 (9.4-12.4) fL Immature Gran % 0.2 (0-4) % Seg Neutrophils % 67.8 % Lymphocytes % 21.3 % Monocytes % 7.7 % Eosinophils % 2.5 % Basophils % 0.5 % Neutrophils # 5.8 (1.6-8.9) K/mcL Lymphocytes # 1.8 (0.6-4.6) K/mcL Monocytes # 0.7 (0.0-1.3) K/mcL Eosinophils # 0.2 (0.0-0.6) K/mcL Basophils # 0.0 (0.0-0.2) K/mcL PT (9.4-12.1) Seconds INR Heparin Anti-Xa, Unfract (0.30-0.70) IU/mL Sodium 138 (136-145) mEq/L Potassium 3.8 (3.5-5.1) mEq/L Chloride 104 (98-107) mEq/L Carbon Dioxide 27 (23-29) mEq/L BUN 19 (8-23) mg/dL Creatinine 1.33 H (0.70-1.30) mg/dL Est GFR ( Amer) > 60 (> 60) Est GFR (Non-Af Amer) 51 L (> 60) BUN/Creatinine Ratio 14 (6-26) Glucose 145 H (70-105) mg/dL Calculated Osmolality 291 (280-300) Calcium 10.2 (8.6-10.3) mg/dL Total Bilirubin 0.4 (0.3-1.0) mg/dL Direct Bilirubin 0.1 (0.0-0.2) mg/dL Indirect Bilirubin 0.3 (0.0-1.2) mg/dL AST 18 (13-39) Units/L ALT 15 (7-52) Units/L Alkaline Phosphatase 60 (34-104) Units/L Troponin I 0.62 H* (< 0.04) ng/mL Serum Total Protein 7.1 (6.4-8.9) g/dL Albumin 4.5 (3.5-5.7) g/dL Globulin 2.6 (2.4-3.5) g/dL Albumin/Globulin Ratio 1.7 (1.1-2.2) Lipase 41 (11-82) Units/L Urine Color Yellow (Yellow) Urine Clarity Clear (Clear) Urine pH 6.0 (5.0-8.0) pH Units Ur Specific [place] 1.018 (1.010-1.025) Urine Protein 30 H (Neg-Trace) mg/dL Urine Glucose (UA) Normal (Normal) mg/dL Urine Ketones Negative (Negative) mg/dL Urine Blood Negative (Negative) Urine Nitrite Negative (Negative) Urine Bilirubin Small H (Negative) Urine Urobilinogen Normal (Normal) mg/dL Ur Leukocyte Esterase Small H (Negative) Urine Microscopic RBC 3-5 H (0-3) per hpf Urine Microscopic WBC 3-5 H (0-3) per hpf Ur Squamous Epith Cells Moderate H (None-Few) per lpf Urine Bacteria None Seen (None-Few) per hpf Hyaline Casts None Seen (None-Few) per lpf Ur Culture Indicated? YES A (NO) Stool Occult Bld Scrn (Negative) 12/08/17 12/08/17 Range/Units 08:59 09:08 WBC (4.3-11.1) K/mcL RBC (4.19-5.50) M/mcL Hgb (12.9-16.9) g/dL Hct (37.5-50.1) % MCV (83.0-100.0) fL MCH (28.0-33.3) pg MCHC (31.6-35.5) g/dL RDW (11.5-14.5) % Plt Count (140-400) K/mcL MPV (9.4-12.4) fL Immature Gran % (0-4) % Seg Neutrophils % % Lymphocytes % % Monocytes % % Eosinophils % % Basophils % % Neutrophils # (1.6-8.9) K/mcL Lymphocytes # (0.6-4.6) K/mcL Monocytes # (0.0-1.3) K/mcL Eosinophils # (0.0-0.6) K/mcL Basophils # (0.0-0.2) K/mcL PT 11.8 (9.4-12.1) Seconds INR 1.0 Heparin Anti-Xa, Unfract 0.05 L (0.30-0.70) IU/mL Sodium (136-145) mEq/L Potassium (3.5-5.1) mEq/L Chloride (98-107) mEq/L Carbon Dioxide (23-29) mEq/L BUN (8-23) mg/dL Creatinine (0.70-1.30) mg/dL Est GFR ( Amer) (> 60) Est GFR (Non-Af Amer) (> 60) BUN/Creatinine Ratio (6-26) Glucose (70-105) mg/dL Calculated Osmolality (280-300) Calcium (8.6-10.3) mg/dL Total Bilirubin (0.3-1.0) mg/dL Direct Bilirubin (0.0-0.2) mg/dL Indirect Bilirubin (0.0-1.2) mg/dL AST (13-39) Units/L ALT (7-52) Units/L Alkaline Phosphatase (34-104) Units/L Troponin I (< 0.04) ng/mL Serum Total Protein (6.4-8.9) g/dL Albumin (3.5-5.7) g/dL Globulin (2.4-3.5) g/dL Albumin/Globulin Ratio (1.1-2.2) Lipase (11-82) Units/L Urine Color (Yellow) Urine Clarity (Clear) Urine pH (5.0-8.0) pH Units Ur Specific [place] (1.010-1.025) Urine Protein (Neg-Trace) mg/dL Urine Glucose (UA) (Normal) mg/dL Urine Ketones (Negative) mg/dL Urine Blood (Negative) Urine Nitrite (Negative) Urine Bilirubin (Negative) Urine Urobilinogen (Normal) mg/dL Ur Leukocyte Esterase (Negative) Urine Microscopic RBC (0-3) per hpf Urine Microscopic WBC (0-3) per hpf Ur Squamous Epith Cells (None-Few) per lpf Urine Bacteria (None-Few) per hpf Hyaline Casts (None-Few) per lpf Ur Culture Indicated? (NO) Stool Occult Bld Scrn Negative (Negative) Critical Care Time Critical Care Time: Yes Total Critical Care Time: 35 Attestation: Critical care performed: Time is exclusive of separately billable procedures. Time includes: direct patient care, patient reassessment, coordination of patient care, interpretation of data (laboratory data, radiology data, and respiratory data), review of patient's medical records, medical consultation and documentation of patient care. Procedures included in critical care time: Procedures excluded from critical care time: Attestation Statement - Attestation Attestation: I examined this patient and my medical decision-making was reviewed with the Resident Physician. I agree with the documented findings, disposition and treatment plan as described except to the extent set forth below. Patient presents to the ED with a chief complaint of lower abdominal pain and indigestion. Onset about 5 AM. No vomiting. No fever. On examination he is a soft abdomen with lower tenderness. He is actively burping. Plan. CT abdomen basic labs. No chest pain. No shortness of breath. Patient denies any choking episodes. He has been able to drink water without any issues. Patient with an elevated troponin. Starting heparin. Cardiology has been consult it. Admitted to medicine. Abdomen/Pelvis CT 12/08/17 07:31 IMPRESSION: 1. Possible mild cystitis. 2. Liquid stool in the cecum, potentially diarrhea. This could be related to mild enteritis given fluid distention of some small bowel loops. 3. Findings of infectious or inflammatory bronchiolitis in the lingula, right middle lobe, and bilateral lower lobes. D/ / Sammy Locke MD / Sammy Locke MD Interpreting Provider: Sammy Locke MD Chest X-Ray 12/08/17 07:47 IMPRESSION: Subtle bibasilar airspace opacities, corresponding with tree-in-bud opacities seen on CT. The CT appearance suggests infectious or inflammatory bronchiolitis. D/ / Sammy Locke MD / Sammy Locke MD Interpreting Provider: Sammy Locke MD
[2017-12-08 07:56] LABS: Bilirubin,Urine Small (Negative); Blood,Urine Negative (Negative); Clarity,Urine Clear (Clear); Color,Urine Yellow (Yellow); Glucose,Urine (UA) Normal (Normal); Ketones,Urine Negative (Negative); Leukocyte Esterase,Urine Small (Negative); Nitrite,Urine Negative (Negative); Protein,Urine 30 mg/dL (Neg-Trace); Specific Gravity,Urine 1.018 (1.010-1.025); Urobilinogen,Urine Normal (Normal)
[2017-12-08 07:59] LABS: Bacteria,Urine None Seen per hpf (None-Few); Hyaline Casts,Urine None Seen per lpf (None-Few); Squamous Epithelial Cell,Urine Moderate per lpf (None-Few)
[2017-12-08 08:05] LABS: Basophils % 0.5 %; Eosinophils # 0.2 K/mcL (0.0-0.6); Eosinophils % 2.5 %; Hematocrit 38.7 % (37.5-50.1); Hemoglobin 12.7 g/dL (12.9-16.9); Immature Granulocytes % 0.2 % (0-4); Lymphocytes # 1.8 K/mcL (0.6-4.6); Lymphocytes % 21.3 %; Mean Corpuscular HGB Conc 32.8 g/dL (31.6-35.5); Mean Corpuscular Hemoglobin 29.6 pg (28.0-33.3); Mean Corpuscular Volume 90.2 fL (83.0-100.0); Mean Platelet Volume 9.7 fL (9.4-12.4); Monocytes # 0.7 K/mcL (0.0-1.3); Monocytes % 7.7 %; Neutrophils # 5.8 K/mcL (1.6-8.9); Platelet Count 187 K/mcL (140-400); Red Blood Count 4.29 M/mcL (4.19-5.50); Red Cell Distribution Width 13.2 % (11.5-14.5); Segmented Neutrophils % 67.8 %
--- NOTE | 2017-12-08 08:05 | Emergency Department Note ---
Disposition Clinical Impression: NSTEMI (non-ST elevated myocardial infarction), Belching Abdominal pain Qualifiers: Abdominal location: unspecified location Qualified Code(s): R10.9 - Unspecified abdominal pain Disposition: Admitted As Inpatient Condition: Fair General Adult HPI - General Chief complaint: ED Abdominal Pain Stated complaint: Abd Pain Time Seen by Provider: 12/08/17 07:14 Source: patient Mode of arrival: ambulatory Limitations: no limitations Nursing Notes Reviewed: Yes Vital Signs Reviewed: Yes - History of Present Illness HPI Narrative: 82-year-old male with significant past medical history of hypertension, hy percholesterolemia and coronary artery disease with previous stent placement presenting to the emergency department with chief complaint of abdominal pain and belching. According to the patient the pain woke him up this morning around 4 AM. He felt nauseated but denies any vomiting. Denies any chest pain or shortness of breath. Patient denies any dysuria or frequency. He states he has not had a full bowel movement approximately 3 days. Denies any previous abdominal surgeries. He states he believes this is from being constipated. Denies any fevers at home. Pain Scale: 10 - Related Data Home Medications Medication Instructions Recorded Confirmed Aspirin 81 mg PO DAILY 08/08/16 12/08/17 Clopidogrel [Plavix] 75 mg PO DAILY 08/08/16 12/08/17 Ergocalciferol (VITAMIN D2) 50,000 unit PO PETTY 08/08/16 12/08/17 [Vitamin D2] Lisinopril [Zestril] 40 mg PO DAILY 08/08/16 12/08/17 Multivitamin [One Daily 1 each PO DAILY 08/08/16 12/08/17 Multivitamin] Simvastatin [Zocor] 20 mg PO HS 08/08/16 12/08/17 Sitagliptin Phosphate [Januvia] 50 mg PO DAILY 05/08/17 12/08/17 amLODIPine [Norvasc] 5 mg PO DAILY 05/08/17 12/08/17 hydroCHLOROthiazide 25 mg PO DAILY 05/08/17 12/08/17 [Hydrochlorothiazide] Pantoprazole Sodium [Protonix] 40 mg PO DAILY 12/08/17 12/08/17 Previous Rx's Medication Instructions Recorded Metoprolol [Lopressor] 12.5 mg PO BID #30 tablet 05/10/17 Allergies Allergy/AdvReac Type Severity Reaction Status Date / Time No Known Allergies Allergy Verified 12/08/17 07:10 All systems ED: reviewed and negative except as stated. Constitutional: Denies: fever, chills, weakness Eyes: Reports: as per HPI ENT ED: Reports: as per HPI Cardiovascular: Denies: chest pain, palpitations, dyspnea on exertion Respiratory: Denies: cough, dyspnea, wheezes Gastrointestinal: Reports: abdominal pain, nausea. Denies: vomiting Genitourinary: Denies: urgency, dysuria, frequency Musculoskeletal: Reports: as per HPI Integumentary: Reports: as per HPI Neurological: Denies: weakness, numbness, paresthesias Psychiatric: Reports: as per HPI Endocrine: Reports: as per HPI Hematological/Lymphatic: Reports: as per HPI Allergic/Immunologic: Reports: as per HPI Past Medical History - Past Medical History Attestation: Yes The following information was validated with the patient. Medical history: Reports: coronary artery disease, diabetes, GERD, hyperlipidemia, hypertension, myocardial infarction, renal disease Surgical history: Reports: angioplasty/stent Psychiatric history: Reports: no psych history - Social History Smoking Status: Former smoker Smokeless Tobacco Status: No Alcohol use: Reports: none Drug use: Reports: none Physical Exam - General Limitations: no limitations General appearance: alert, in no apparent distress - Head Head exam: atraumatic, normocephalic, normal inspection - Eye Eye exam: Present: normal appearance. Absent: scleral icterus, conjunctival injection - ENT ENT exam: normal exam, mucous membranes moist - Neck Neck exam: Present: normal inspection, full ROM. Absent: tenderness, meningismus - Chest Chest inspection: Present: normal inspection, symmetric chest wall rise. Abse nt: tenderness, rash - Respiratory Respiratory exam: Present: normal lung sounds bilaterally. Absent: respiratory distress, wheezes - Cardiovascular Cardiovascular exam: Present: regular rate, normal rhythm, normal heart sounds - Abdominal Exam Abdominal exam: Present: soft, tenderness. Absent: distention, guarding, rebound, rigidity Abdominal tenderness: Present: suprapubic, mild - Extremities Exam Extremities exam: Present: normal inspection, full ROM - Neurological Exam Neurological exam: Present: alert, oriented X3 - Psychiatric Psychiatric exam: Present: normal affect, normal mood - Skin Skin exam: Present: warm, intact Course Course Narrative: 82-year-old male presenting for suprapubic abdominal pain and belching. Patient's abdomen is soft but tender. Otherwise physical exam benign. He is alert and oriented 3 and hemodynamically stable. Patient does have coronary artery disease history. We will perform abdominal workup including CMP, lipase and a CT of the abdomen and pelvis. We will also get an EKG and troponin. We will provide the patient with Zofran for nausea. Disposition pending results. Patient agrees with this plan. - Reevaluation(s) Reevaluation #1: Patient's laboratory analysis shows an elevated troponin at 0.62. Patient has had no chest pain throughout his stay. I spoke with him about possible DC related to the belching and he states his last DC he had a similar presentation. I spoke with the rvda master certified rv technician occupational therapy program director Dr. Navarrete who agrees to heparinize the patient and be consult on his case. CT of the abdomen and pelvis did not show any acute abnormality besides some possible cystitis and moderate stool burden. At this time will plan to admit the patient as an NSTEMI with heparin therapy. I spoke with the hospitalist occupational therapy program director Dr. Stephens who agrees to accept the patient at this time. Patient remains alert and oriented 3 in the room and hemodynamically stable. Patient agrees with this plan. Vital Signs Temperature 97.7 F 12/08/17 07:10 Pulse Rate 79 12/08/17 07:10 Respiratory Rate 16 12/08/17 07:10 Blood Pressure 146/64 12/08/17 07:10 O2 Sat by Pulse Oximetry 97 12/08/17 07:10 Temperature 97.7 F 12/08/17 08:14 Pulse Rate 79 12/08/17 08:14 Respiratory Rate 16 12/08/17 08:14 Blood Pressure 146/64 12/08/17 08:14 O2 Sat by Pulse Oximetry 97 12/08/17 08:14 Oxygen Delivery Oxygen Delivery Room Air Medical Decision Making - Lab Data Result diagrams: 12/08/17 07:40 12/08/17 07:40 Lab Results 12/08/17 12/08/17 12/08/17 Range/Units 07:40 07:40 07:40 WBC 8.5 (4.3-11.1) K/mcL RBC 4.29 (4.19-5.50) M/mcL Hgb 12.7 L (12.9-16.9) g/dL Hct 38.7 (37.5-50.1) % MCV 90.2 (83.0-100.0) fL MCH 29.6 (28.0-33.3) pg MCHC 32.8 (31.6-35.5) g/dL RDW 13.2 (11.5-14.5) % Plt Count 187 (140-400) K/mcL MPV 9.7 (9.4-12.4) fL Immature Gran % 0.2 (0-4) % Seg Neutrophils % 67.8 % Lymphocytes % 21.3 % Monocytes % 7.7 % Eosinophils % 2.5 % Basophils % 0.5 % Neutrophils # 5.8 (1.6-8.9) K/mcL Lymphocytes # 1.8 (0.6-4.6) K/mcL Monocytes # 0.7 (0.0-1.3) K/mcL Eosinophils # 0.2 (0.0-0.6) K/mcL Basophils # 0.0 (0.0-0.2) K/mcL Sodium 138 (136-145) mEq/L Potassium 3.8 (3.5-5.1) mEq/L Chloride 104 (98-107) mEq/L Carbon Dioxide 27 (23-29) mEq/L BUN 19 (8-23) mg/dL Creatinine 1.33 H (0.70-1.30) mg/dL Est GFR ( Amer) > 60 (> 60) Est GFR (Non-Af Amer) 51 L (> 60) BUN/Creatinine Ratio 14 (6-26) Glucose 145 H (70-105) mg/dL Calculated Osmolality 291 (280-300) Calcium 10.2 (8.6-10.3) mg/dL Total Bilirubin 0.4 (0.3-1.0) mg/dL Direct Bilirubin 0.1 (0.0-0.2) mg/dL Indirect Bilirubin 0.3 (0.0-1.2) mg/dL AST 18 (13-39) Units/L ALT 15 (7-52) Units/L Alkaline Phosphatase 60 (34-104) Units/L Troponin I 0.62 H* (< 0.04) ng/mL Serum Total Protein 7.1 (6.4-8.9) g/dL Albumin 4.5 (3.5-5.7) g/dL Globulin 2.6 (2.4-3.5) g/dL Albumin/Globulin Ratio 1.7 (1.1-2.2) Lipase 41 (11-82) Units/L Urine Color Yellow (Yellow) Urine Clarity Clear (Clear) Urine pH 6.0 (5.0-8.0) pH Units Ur Specific [place] 1.018 (1.010-1.025) Urine Protein 30 H (Neg-Trace) mg/dL Urine Glucose (UA) Normal (Normal) mg/dL Urine Ketones Negative (Negative) mg/dL Urine Blood Negative (Negative) Urine Nitrite Negative (Negative) Urine Bilirubin Small H (Negative) Urine Urobilinogen Normal (Normal) mg/dL Ur Leukocyte Esterase Small H (Negative) Urine Microscopic RBC 3-5 H (0-3) per hpf Urine Microscopic WBC 3-5 H (0-3) per hpf Ur Squamous Epith Cells Moderate H (None-Few) per lpf Urine Bacteria None Seen (None-Few) per hpf Hyaline Casts None Seen (None-Few) per lpf Ur Culture Indicated? YES A (NO) - EKG Data EKG #1 EKG attestation: Yes I reviewed and interpreted this EKG. EKG results narrative: Sinus rhythm. PACs. 63 bpm. MI interval 156, QRS 96, QTC 442. No sign of acute ST segment elevation or ischemia. Compared with previous EKG completed on 05/08/2017 no significant changes noted
[2017-12-08 08:22] LABS: Alanine Aminotransferase 15 Units/L (7-52); Albumin 4.5 g/dL (3.5-5.7); Albumin/Globulin Ratio 1.7 (1.1-2.2); Alkaline Phosphatase 60 Units/L (34-104); Aspartate Amino Transferase 18 Units/L (13-39); BUN/Creatinine Ratio 14 (6-26); Bilirubin,Direct 0.1 mg/dL (0.0-0.2); Bilirubin,Indirect 0.3 mg/dL (0.0-1.2); Bilirubin,Total 0.4 mg/dL (0.3-1.0); Blood Urea Nitrogen 19 mg/dL (8-23); Calcium 10.2 mg/dL (8.6-10.3); Carbon Dioxide 27 mEq/L (23-29); Chloride 104 mEq/L (98-107); Globulin 2.6 g/dL (2.4-3.5); Glucose 145 mg/dL (70-105); Lipase 41 Units/L (11-82); Osmolality,Calculated 291 (280-300); Potassium 3.8 mEq/L (3.5-5.1); Sodium 138 mEq/L (136-145); Total Protein 7.1 g/dL (6.4-8.9); eGFR For Non-African Americans 51 (> 60)
[2017-12-08 08:26] LABS: Troponin I 0.62 ng/mL (< 0.04)
[2017-12-08] MEDS ORDERED: GI Cocktail 40 ML EACH PO ONE (08:30)
[2017-12-08] MEDS ORDERED: *HR* Heparin 5,000 UNIT/ML VIAL IVP PRN ×2 (08:49)
[2017-12-08] MEDS ORDERED: *HR* Heparin 5,000 UNIT/ML VIAL IVP ONE (08:49)
[2017-12-08 09:24] LABS: Heparin anti-factor XA UFH 0.05 IU/mL (0.30-0.70)
[2017-12-08 09:25] LABS: Prothrombin Time 11.8 Seconds (9.4-12.1)
[2017-12-08] MEDS: Heparin 25,000 UNIT/500 ML D5W 25,000 UNIT/500 ML BAG IVC SCH (09:52)
--- NOTE | 2017-12-08 12:09 | Internal Med History&Physical ---
Date of Encounter: 12/08/17 Time of Encounter: 12:09 Internal Medicine - H&P: HPI History of present illness: Mr. Mack is a 82 year old male with past medical history of hypertension, hypercholesterolemia and coronary artery disease with previous stent placement presenting to the emergency department with chief complaint of abdominal pain associated with belching. Denies any chest pain or shortness of breath, diaphoresis , palpitation , orthopnea , paroxysmal nocturnal dyspnea , he was evaluated by the ER staff and his cardiac enzymes revealed mildly elevated troponin. Cardiology was consulted and the patient was admitted for further evaluation and management. Past Med Surg Social Fam HX - Past Medical History Medical history: coronary artery disease, diabetes, GERD, hyperlipidemia, hypertension, myocardial infarction, renal disease Psychiatric history: no psych history - Past Surgical History Surgical History: angioplasty/stent Additional surgical history: Stent x 4. - Social History Smoking Status: Former smoker Smokeless Tobacco Status: No Alcohol use: none Drug use: none - Family History Father Living Status: Hx Family Cardiac Disorders: Yes ([place]) Mother Living Status: Hx Family Cancer: Yes (breast cancer) Internal Medicine - H&P: Meds RX: Aspirin 81 mg PO DAILY 08/08/16 [History] RX: Clopidogrel [Plavix] 75 mg PO DAILY 08/08/16 [History] RX: Ergocalciferol (VITAMIN D2) [Vitamin D2] 50,000 unit PO PETTY 08/08/16 [History] RX: Lisinopril [Zestril] 40 mg PO DAILY 08/08/16 [History] RX: Multivitamin [One Daily Multivitamin] 1 each PO DAILY 08/08/16 [History] RX: Simvastatin [Zocor] 20 mg PO HS 08/08/16 [History] RX: Sitagliptin Phosphate [Januvia] 50 mg PO DAILY 05/08/17 [History] RX: amLODIPine [Norvasc] 5 mg PO DAILY 05/08/17 [History] RX: hydroCHLOROthiazide [Hydrochlorothiazide] 25 mg PO DAILY 05/08/17 [History] RX: Metoprolol [Lopressor] 12.5 mg PO BID #30 tablet 05/10/17 [Rx] RX: Pantoprazole Sodium [Protonix] 40 mg PO DAILY 12/08/17 [History] Allergy/AdvReac Type Severity Reaction Status Date / Time No Known Allergies Allergy Verified 12/08/17 07:10 All Systems PM: A 10-system review of systems was performed and is negative for pertinent findings except as documented above in the HPI. - Constitutional Constitutional: no chills, no fever(s), no night sweats - Cardiovascular Cardiovascular ROS IM: chest pain, no diaphoresis, no dyspnea, no lightheadedness, no palpitations, no syncope - Respiratory Respiratory: no cough, no dyspnea, no wheezing, no excessive phlegm production - Gastrointestinal Gastrointestinal: belching, no abdominal pain, no diarrhea, no hematemesis, no hematochezia, no melena, no nausea, no vomiting - Neurological Neurological ROS: no confusion, no convulsions, no focal weakness, no numbness, no tingling, no tremor(s) - Constitutional Vitals: Temp Pulse Resp BP Pulse Ox 97.7 F 64 16 169/86 92 12/08/17 11:22 12/08/17 11:22 12/08/17 11:22 12/08/17 11:22 12/08/17 11:22 General appearance: Present: A&O X 3 Exam: As below - Head Head exam: Present: atraumatic, normocephalic - Neck Neck exam general surgery: Present: supple, trachea midline. Absent: lymphadenopathy - Respiratory Respiratory exam: Present: CTAB. Absent: accessory muscle use, rales, rhonchi, wheezes - Cardiovascular Cardiovascular exam: Present: RRR, +S1, +S2. Absent: diastolic murmur, gallop, rubs, systolic murmur - GI/Abdominal GI/Abdominal exam: Present: normal bowel sounds, soft, no peritoneal signs. Absent: distended, tenderness - Extremities Exam Extremities exam: Present: warm, radial pulses palpable and symmetrical. Absent: calf tenderness, cyanotic, pedal edema Internal Med - H&P Results - Labs CBC & Chem 7: 12/09/17 00:05 12/09/17 00:05 Labs: Short CBC 12/08/17 Range/Units 07:40 WBC 8.5 (4.3-11.1) K/mcL Hgb 12.7 L (12.9-16.9) g/dL Hct 38.7 (37.5-50.1) % Plt Count 187 (140-400) K/mcL Neutrophils # 5.8 (1.6-8.9) K/mcL BMP 12/08/17 07:40 Sodium 138 Potassium 3.8 Chloride 104 Carbon Dioxide 27 BUN 19 Creatinine 1.33 H Glucose 145 H Calcium 10.2 Cardiac Enzymes 12/08/17 Range/Units 07:40 Troponin I 0.62 H* (< 0.04) ng/mL Liver Function 12/08/17 Range/Units 07:40 Total Bilirubin 0.4 (0.3-1.0) mg/dL Direct Bilirubin 0.1 (0.0-0.2) mg/dL AST 18 (13-39) Units/L ALT 15 (7-52) Units/L Alkaline Phosphatase 60 (34-104) Units/L Albumin 4.5 (3.5-5.7) g/dL Urine 12/08/17 Range/Units 07:40 Urine Color Yellow (Yellow) Urine Clarity Clear (Clear) Urine pH 6.0 (5.0-8.0) pH Units Ur Specific [place] 1.018 (1.010-1.025) Urine Protein 30 H (Neg-Trace) mg/dL Urine Glucose (UA) Normal (Normal) mg/dL - Impressions ITS Impressions Abdomen/Pelvis CT 12/08/17 07:31 IMPRESSION: 1. Possible mild cystitis. 2. Liquid stool in the cecum, potentially diarrhea. This could be related to mild enteritis given fluid distention of some small bowel loops. 3. Findings of infectious or inflammatory bronchiolitis in the lingula, right middle lobe, and bilateral lower lobes. D/ / Sammy Locke MD / Sammy Locke MD Interpreting Provider: Sammy Locke MD Chest X-Ray 12/08/17 07:47 IMPRESSION: Subtle bibasilar airspace opacities, corresponding with tree-in-bud opacities seen on CT. The CT appearance suggests infectious or inflammatory bronchiolitis. D/ / Sammy Locke MD / Sammy Locke MD Interpreting Provider: Sammy Locke MD - Assessment and plan (1) NSTEMI (non-ST elevated myocardial infarction) Status: Acute Assessment and plan: - The patient was started on heparin drip - cardiac enzymes x 2 q 8 hr - EKG now and in AM - ASA, plavix - O2 by NC to keep SpO2 greater than 92% - CBCD, BMP in AM - Fasting lipids - Tylenol 650 mg PO q 4-6 hr PRN headache - Heparin 5000 U SQ BID - 2D Echo - Cardiology consult (2) Coronary artery disease Status: Acute Assessment and plan: We will continue home medication, allergy was consulted for further evaluation and management Qualifiers: Coronary Disease-Associated Artery/Lesion type: [place] artery [place] vs. transplanted heart: [place] heart Associated angina: angina presence unspecified Qualified Code(s): I25.10 - Atherosclerotic heart disease of [place] coronary artery without angina pectoris (3) Diabetes type 2, controlled Status: Acute Assessment and plan: We will start the patient on moderate on sliding scale with moderate insulin coverage Qualifiers: Diabetes mellitus correction insulin use: without intermission coordinator use Diabetes mellitus complication status: without complication Qualified Code(s): E11.9 - Type 2 diabetes mellitus without complications (4) Hypercholesterolemia Status: Acute Assessment and plan: We will continue home medication and obtain fasting lipid profile in a.m. (5) BPH (benign prostatic hyperplasia) Status: Acute Assessment and plan: We will continue him meds Qualifiers: Lower urinary tract symptom detail: unspecified Qualified Code(s): N40.1 - Benign prostatic hyperplasia with lower urinary tract symptoms (6) DVT prophylaxis Status: Acute (7) Abnormal urinalysis Status: Acute Assessment and plan: Urine analysis is suggestive of possible infection however patient is asymptomatic we will be we will repeat UA and obtain clean-catch urinalysis. - Time Spent With Patient Total time spent is greater than 50% in coordination of care (as documented) at patient's floor/unit and/or counseling patient:
[2017-12-08] MEDS ORDERED: *HR* HYDROcodone/Acet 5/325 mg TABLET PO PRN (12:13)
[2017-12-08] MEDS ORDERED: Naloxone 0.4 MG/ML INJ IVP PRN (12:13)
[2017-12-08] MEDS ORDERED: Acetaminophen 325 MG TABLET PO PRN (12:13)
[2017-12-08 14:43] LABS: INR 1.2; Prothrombin Time 13.1 Seconds (9.4-12.1)
[2017-12-08 14:48] LABS: Chol/HDL Ratio 3.5 (0-4.9)
[2017-12-08 14:51] LABS: Troponin I 0.58 ng/mL (< 0.04)
[2017-12-08 15:03] LABS: Activated Partial Thrombo Time 133.8 Seconds (26.0-36.0)
--- NOTE | 2017-12-08 16:10 | Electrocardiograph Report ---
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
--- NOTE | 2017-12-08 19:17 | Cardiology Consult Note ---
Addendum entered and electronically signed by Kaushal Navarrete MD 12/08/17 14:26: I examined this patient and my medical decision-making was reviewed with the FLOOR CLEANER. I agree with the documented findings, disposition and treatment plan as described except to the extent set forth below. A/P: CAD sp PCI Atypical presentations including abdominal pain, belching with mildly elevated troponin - continue to trend CT shows multiple areas of inflammation (cystitis, enteritis ?bronchiolitis) No indication for LHC at this time. TTE ordered. Continue heparin unless complication such as bleeding or HIT develops. Thank you for the consult, Kaushal Navarrete MD [facility] Original Note: Date of Encounter: 12/08/17 Time of Encounter: 13:11 Assessment and Plan (1) Elevated troponin Current Visit: Yes Status: Acute Initial troponin 0.62. Presented with lower ABD pain/belching--different than prior anginal equivalent. Trend troponin for total of 3. Endorses 4 brief episodes of left sided chest pain after admission, sharp, resolved spontaneously. ABD/Pelvic CT shows possible mild cystitis, possible mild enteritis. Findings of infectious or inflammatory bronchiolitis in the lingula, right middle lobe, and bilateral lower lobes. UA indicated that urine culture is needed. NSTEMI vs demand ischemia in setting of above findings. TTE to evaluate structure and function. TTE 04/2017 EF preserved. Most recent LHC 04/2017 for NSTEMI with peak troponin 1.22 at that time was without intervention. Double vessel CAD, patent stents. On heparin gtt. Continue home ASA, Plavix, Statin, BB. Further recs pending troponin trend and TTE results. LHC to be considered if significant rise in troponin or reduction in EF. (2) Coronary artery disease Current Visit: Yes Status: Acute Known hx CAD and PCI. LHC 04/2017 double vessel CAD, patent stents, no intervention. Continue ASA, Plavix, Statin, BB, ACEi. Qualifiers: Coronary Disease-Associated Artery/Lesion type: [place] artery [place] vs. transplanted heart: [place] heart Associated angina: angina presence unspecified Qualified Code(s): I25.10 - Atherosclerotic heart disease of [place] coronary artery without angina pectoris Discussion w patient/family: The assessment and plan as outlined above was discussed with the patient and/or family members who expressed understanding and agreement. All questions were answered. Thank you for involving us in the care of your patient. Please call with any questions. I will discuss all the above with Dr. Navarrete and make changes as necessary. History of Present Illness Consult date: 12/08/17 Requesting physician: Ann Stephens Consult reason: elevated troponin Chief complaint: abdominal pain and belching History of present illness: Mr. Mack is a 82 year old male with PMH of [place] and PCI in 2002, IDDM type II, HTN, HLD, GERD, CKD stage III and skin cancer on left ear s/p radiation who presented with the c/o lower abdominal pain and belching. He states after being admitted he experienced left sided chest pain, 4 episodes that were sharp, brief in duration and spontaneously resolved. Per pt, symptoms different than his prior anginal equivalent of left arm pain. Troponin found to be elevated 0.62. UA indicates urine culture is needed. Cardiology consulted for further recs. Pt was hosptalized for NSTEMI 04/2017 and underwent LHC without intervention. Pelvi c/ABD CT shows possible mild cystitis. Liquid stool in the cecum, potentially diarrhea could be related to mild enteritis given fluid distention of some small bowel loops. Findings of infectious or inflammatory bronchiolitis in the lingula, right middle lobe, and bilateral lower lobes. Prior CV testing: LHC 05/09/17: Double vessel disease. Previously stented proximal LAD and proximal and mid RCA patent. The left ventricle is normal and has normal contractility EF 55%. TTE 05/10/17: LVEF 60%. Normal LV chamber size, wall thickness and function. Mild left ventricular diastolic dysfunction. Normal right ventricular structure and function. Mild-moderate aortic regurgitation. Mild aortic sclerosis. Mean gradient 11 mmHg. Borderline mild pulmonary hypertension. Past Med Surg Social Fam HX - Past Medical History Medical history: coronary artery disease, diabetes, GERD, hyperlipidemia, hypertension, myocardial infarction, renal disease Psychiatric history: no psych history - Past Surgical History Surgical History: angioplasty/stent Additional surgical history: Stent x 4. - Social History Smoking Status: Former smoker Smokeless Tobacco Status: No Alcohol use: none Drug use: none - Family History Mother Living Status: Hx Family Cancer: Yes (breast cancer) Father Living Status: Hx Family Cardiac Disorders: Yes (MN) Medications and Allergies Aspirin 81 mg PO DAILY 08/08/16 [History] Clopidogrel [Plavix] 75 mg PO DAILY 08/08/16 [History] Ergocalciferol (VITAMIN D2) [Vitamin D2] 50,000 unit PO PETTY 08/08/16 [History] Lisinopril [Zestril] 40 mg PO DAILY 08/08/16 [History] Multivitamin [One Daily Multivitamin] 1 each PO DAILY 08/08/16 [History] Simvastatin [Zocor] 20 mg PO HS 08/08/16 [History] Sitagliptin Phosphate [Januvia] 50 mg PO DAILY 05/08/17 [History] amLODIPine [Norvasc] 5 mg PO DAILY 05/08/17 [History] hydroCHLOROthiazide [Hydrochlorothiazide] 25 mg PO DAILY 05/08/17 [History] Metoprolol [Lopressor] 12.5 mg PO BID #30 tablet 05/10/17 [Rx] Pantoprazole Sodium [Protonix] 40 mg PO DAILY 12/08/17 [History] Allergy/AdvReac Type Severity Reaction Status Date / Time No Known Allergies Allergy Verified 12/08/17 07:10 All Systems Review: The remainder of the systems were reviewed and are negative - Cardiovascular Cardiovascular: as per HPI, chest pain at rest - Gastrointestinal Gastrointestinal: abdominal pain Physical Examination Vital Signs, Last 4 Hours Temp Pulse Resp BP Pulse Ox 12/08/17 11:22 97.7 F 64 16 169/86 92 12/08/17 10:54 16 152/88 12/08/17 09:56 67 16 131/69 95 Vital Signs Temp Pulse Resp BP Pulse Ox 12/08/17 11:22 97.7 F 64 16 169/86 92 12/08/17 10:54 16 152/88 12/08/17 09:56 67 16 131/69 95 12/08/17 09:00 60 15 154/75 100 12/08/17 08:14 97.7 F 79 16 146/64 97 12/08/17 07:10 97.7 F 79 16 146/64 97 Intake and Output 12/07/17 12/08/17 12/08/17 23:59 07:59 15:59 Other: Stool Characteristics Normal for Patient Weight 75.75 kg 75.5 kg Blood Glucose* 127 Patient Weight 12/08/17 23:59 Weight 75.5 kg General: Conversant, No Apparent Distress HEENT: Atraumatic, Normocephaly, Mucus Membranes Moist Neck: No JVD, Normal carotid pulses Cardiac: Reg Rate and Rhythm, Normal S1 and S2, No Murmur Lungs: Normal Breath Sounds, No Wheeze, Rales, Rhonchi Neuro: Alert and responsive, No focal deficits noted Abdomen: Soft, Non-Tender Skin: No rashes noted on visualized skin Musculoskeletal: No Chest Wall Tenderness Extremities: No Clubbing, No Cyanosis, No Edema, Normal Pulses Results 12/08/17 07:40 12/08/17 07:40 Lab Results 12/08/17 12/08/17 12/08/17 07:40 07:40 08:59 WBC 8.5 Hgb 12.7 L Hct 38.7 Plt Count 187 INR 1.0 Sodium 138 Potassium 3.8 Chloride 104 Carbon Dioxide 27 BUN 19 Creatinine 1.33 H Glucose 145 H Calcium 10.2 Total Bilirubin 0.4 AST 18 ALT 15 Alkaline Phosphatase 60 Troponin I 0.62 H* Lipase 41 Short CBC 12/08/17 Range/Units 07:40 WBC 8.5 (4.3-11.1) K/mcL Hgb 12.7 L (12.9-16.9) g/dL Hct 38.7 (37.5-50.1) % Plt Count 187 (140-400) K/mcL Neutrophils # 5.8 (1.6-8.9) K/mcL BMP 12/08/17 Range/Units 07:40 Sodium 138 (136-145) mEq/L Potassium 3.8 (3.5-5.1) mEq/L Chloride 104 (98-107) mEq/L Carbon Dioxide 27 (23-29) mEq/L BUN 19 (8-23) mg/dL Creatinine 1.33 H (0.70-1.30) mg/dL Glucose 145 H (70-105) mg/dL Calcium 10.2 (8.6-10.3) mg/dL Cardiac Enzymes 12/08/17 Range/Units 07:40 Troponin I 0.62 H* (< 0.04) ng/mL Liver Function 12/08/17 Range/Units 07:40 Total Bilirubin 0.4 (0.3-1.0) mg/dL Direct Bilirubin 0.1 (0.0-0.2) mg/dL AST 18 (13-39) Units/L ALT 15 (7-52) Units/L Alkaline Phosphatase 60 (34-104) Units/L Albumin 4.5 (3.5-5.7) g/dL Urine 12/08/17 Range/Units 07:40 Urine Color Yellow (Yellow) Urine Clarity Clear (Clear) Urine pH 6.0 (5.0-8.0) pH Units Ur Specific Cr[place] 1.018 (1.010-1.025) Urine Protein 30 H (Neg-Trace) mg/dL Urine Glucose (UA) Normal (Normal) mg/dL Impressions Abdomen/Pelvis CT 12/08/17 07:31 IMPRESSION: 1. Possible mild cystitis. 2. Liquid stool in the cecum, potentially diarrhea. This could be related to mild enteritis given fluid distention of some small bowel loops. 3. Findings of infectious or inflammatory bronchiolitis in the lingula, right middle lobe, and bilateral lower lobes. D/ / Sammy Locke MD / Sammy Locke MD Interpreting Provider: Sammy Locke MD Chest X-Ray 12/08/17 07:47 IMPRESSION: Subtle bibasilar airspace opacities, corresponding with tree-in-bud opacities seen on CT. The CT appearance suggests infectious or inflammatory bronchiolitis. D/ / Sammy Locke MD / Sammy Locke MD Interpreting Provider: Sammy Locke MD Active Medications Acetaminophen (Tylenol) 650 mg PO Q6HR PRN PRN Reason: Mild Pain/Fever Stop: 06/09/18 12:14 Hydrocodone Bitart/Acetaminophen ([place] 5-325 Mg) 1 tab PO Q6HR PRN PRN Reason: Moderate Pain Stop: 06/09/18 12:14 Heparin Sodium (Porcine) (Heparin) 4,000 unit IVP Q6HR PRN PRN Reason: SEE COMMENTS Stop: 06/09/18 08:50 Heparin Sodium (Porcine) (Heparin) 2,000 unit IVP Q6H PRN PRN Reason: SEE COMMENTS Stop: 06/09/18 08:50 Heparin Sodium/Dextrose (Heparin 25,000 Unit/500 Ml D5w) 25,000 unit in 500 mls @ 18.18 mls/hr IVC .Q24H [place]; Protocol Stop: 06/09/18 09:01 Last Admin: 12/08/17 09:52 Dose: 12 unit/kg/hr, 18.18 mls/hr Naloxone HCl (Narcan) 0.4 mg IVP Q2MIN PRN PRN Reason: SEE COMMENTS Stop: 06/09/18 12:14 - Imaging and Cardiology Echo: report reviewed Cardiac cath: report reviewed - EKG Interpretation EKG results cardiology: personally reviewed (SR) Consult Discharge Plan - Plan Referrals: Rajiv Peguero MD [Primary Care Provider] -
[2017-12-08] MEDS ORDERED: Simethicone 80 MG TAB.CHEW PO PRN (21:08)
[2017-12-09 00:34] LABS: Hematocrit 34.6 % (37.5-50.1); Hemoglobin 11.5 g/dL (12.9-16.9); Mean Corpuscular HGB Conc 33.2 g/dL (31.6-35.5); Mean Corpuscular Hemoglobin 29.9 pg (28.0-33.3); Mean Corpuscular Volume 90.1 fL (83.0-100.0); Mean Platelet Volume 10.2 fL (9.4-12.4); Platelet Count 158 K/mcL (140-400); Red Blood Count 3.84 M/mcL (4.19-5.50); Red Cell Distribution Width 13.3 % (11.5-14.5)
[2017-12-09 00:49] LABS: Potassium 3.7 mEq/L (3.5-5.1)
[2017-12-09 00:50] LABS: Albumin 3.5 g/dL (3.5-5.7); Albumin/Globulin Ratio 1.4 (1.1-2.2); Bilirubin,Total 0.3 mg/dL (0.3-1.0); Calcium 8.9 mg/dL (8.6-10.3); Globulin 2.5 g/dL (2.4-3.5); Magnesium 1.7 mg/dL (1.6-2.6); Phosphorous 4.1 mg/dL (2.7-4.5)
[2017-12-09] MEDS: Heparin 25,000 UNIT/500 ML D5W 25,000 UNIT/500 ML BAG IVC SCH (08:59)
[2017-12-09] MEDS ORDERED: Aspirin 81 MG TAB.CHEW PO SCH (09:00)
[2017-12-09] MEDS ORDERED: amLODIPine 5 MG TABLET PO SCH (09:00)
[2017-12-09] MEDS ORDERED: *HR* SitaGLIPtin 25 MG TABLET PO SCH (09:00)
[2017-12-09] MEDS ORDERED: Multivit/Ca/Min/Fe/FA 1 TAB TABLET PO SCH (09:00)
[2017-12-09] MEDS ORDERED: hydroCHLOROthiazide 25 MG TABLET PO SCH (09:00)
[2017-12-09] MEDS ORDERED: Lisinopril 20 MG TABLET PO SCH (09:00)
[2017-12-09 09:29] LABS: Bilirubin,Urine Negative (Negative); Blood,Urine Negative (Negative); Clarity,Urine Clear (Clear); Color,Urine Yellow (Yellow); Glucose,Urine (UA) Normal (Normal); Ketones,Urine Negative (Negative); Leukocyte Esterase,Urine Negative (Negative); Nitrite,Urine Negative (Negative); Protein,Urine Negative (Neg-Trace); Urobilinogen,Urine Normal (Normal)
--- NOTE | 2017-12-09 09:39 | Cardiology Progress Note ---
Date of Encounter: 12/09/17 Time of Encounter: 09:40 Assessment and Plan (1) Elevated troponin Current Visit: Yes Status: Acute Per Cardiology: Previous records reviewed, Initial troponin 0.62-- downward trending. Presented with lower ABD pain/belching--different than prior anginal equivalent. ABD/Pelvic CT shows possible mild cystitis, possible mild enteritis. Findings of infectious or inflammatory bronchiolitis in the lingula, right middle lobe, and bilateral lower lobes. UA indicated that urine culture is needed. NSTEMI vs demand ischemia in setting of above findings. Most recent [facility] 04/2017 for NSTEMI with peak troponin 1.22 at that time was without intervention. Double vessel CAD, patent stents. Echo pending. Chest pain-free. Reports outpatient EGD and colonoscopy pending this upcoming Monday. Will DC IV Hep gtt. Continue home ASA, Plavix, Statin, BB. (2) Coronary artery disease Current Visit: Yes Status: Acute Per Cardiology: Known hx CAD and PCI. [facility] 04/2017 double vessel CAD, patent stents, no intervention-- peak trop then was 1.22. Qualifiers: Coronary Disease-Associated Artery/Lesion type: [place]chunk artery [place] vs. transplanted heart: [place] heart Associated angina: angina presence unspecified Qualified Code(s): I25.10 - Atherosclerotic heart disease of [place] coronary artery without angina pectoris Discussion w patient/family: The assessment and plan as outlined above was discussed with the patient and/or family members who expressed understanding and agreement. All questions were answered. Thank you for involving us in the care of your patient. Please call with any questions. Subjective Principal diagnosis: CP Interval history: Patient reports feeling better this morning. He reports some mild belching symptoms improved. He denies any chest pain. Denies any short of breath or palpitations. Reports has pending outpatient EGD and colonoscopy this upcoming Monday. Objective Vital Signs, Last 4 Hours Temp Pulse Resp BP Pulse Ox 12/09/17 07:11 97.7 F 53 16 123/66 93 General: Conversant, No Apparent Distress HEENT: Atraumatic, Normocephaly, Mucus Membranes Moist Neck: No JVD, Normal carotid pulses Cardiac: Reg Rate and Rhythm, Normal S1 and S2, No Murmur Lungs: Normal Breath Sounds, No Wheeze, Rales, Rhonchi Neuro: Alert and responsive, No focal deficits noted Abdomen: Soft, Non-Tender Skin: No rashes noted on visualized skin Musculoskeletal: No Chest Wall Tenderness Extremities: No Clubbing, No Cyanosis, No Edema, Normal Pulses Results 12/09/17 00:05 12/09/17 00:05 Lab Results Laboratory Tests 12/08/17 12/08/17 12/08/17 07:40 14:04 20:17 Hgb Hct Creatinine Est GFR (Non-Af Amer) Troponin I 0.62 H* 0.58 H* 0.37 H* 12/09/17 12/09/17 12/09/17 00:05 00:05 00:05 Hgb 11.5 L Hct 34.6 L Creatinine 1.43 H Est GFR (Non-Af Amer) 47 L Troponin I 0.32 H* Active Medications Acetaminophen (Tylenol) 650 mg PO Q6HR PRN PRN Reason: Mild Pain/Fever Stop: 06/09/18 12:14 Hydrocodone Bitart/Acetaminophen ([place] 5-325 Mg) 1 tab PO Q6HR PRN PRN Reason: Moderate Pain Stop: 06/09/18 12:14 Last Admin: 12/08/17 13:53 Dose: 1 tab Amlodipine Besylate (Norvasc) 5 mg PO DAILY [facility]; Protocol Stop: 06/10/18 09:01 Last Admin: 12/09/17 08:22 Dose: 5 mg Aspirin (Aspirin) 81 mg PO DAILY [facility] Stop: 06/10/18 09:01 Last Admin: 12/09/17 08:21 Dose: Not Given Clopidogrel Bisulfate (Plavix) 75 mg PO DAILY [facility] Stop: 06/10/18 09:01 Last Admin: 12/09/17 08:22 Dose: Not Given Ergocalciferol (Drisdol (50,000 Unit)) 50,000 unit PO PETTY [facility] Stop: 06/11/18 09:01 Heparin Sodium (Porcine) (Heparin) 4,000 unit IVP Q6HR PRN PRN Reason: SEE COMMENTS Stop: 06/09/18 08:50 Heparin Sodium (Porcine) (Heparin) 2,000 unit IVP Q6H PRN PRN Reason: SEE COMMENTS Stop: 06/09/18 08:50 Hydrochlorothiazide (Hydrochlorothiazide) 25 mg PO DAILY [facility]; Protocol Stop: 06/10/18 09:01 Last Admin: 12/09/17 08:22 Dose: 25 mg Heparin Sodium/Dextrose (Heparin 25,000 Unit/500 Ml D5w) 25,000 unit in 500 mls @ 18.18 mls/hr IVC .Q24H [facility]; Protocol Stop: 06/09/18 09:01 Last Admin: 12/09/17 08:59 Dose: 12 unit/kg/hr, 18.18 mls/hr Lisinopril (Zestril) 40 mg PO DAILY [facility] Stop: 06/10/18 09:01 Last Admin: 12/09/17 08:21 Dose: 40 mg Metoprolol Tartrate (Lopressor) 12.5 mg PO BID [facility] Stop: 06/09/18 21:01 Last Admin: 12/09/17 08:22 Dose: 12.5 mg Multivitamins/Calcium (Thera M Plus) 1 tab PO DAILY [facility] Stop: 06/10/18 09:01 Last Admin: 12/09/17 08:21 Dose: 1 tab Naloxone HCl (Narcan) 0.4 mg IVP Q2MIN PRN PRN Reason: SEE COMMENTS Stop: 06/09/18 12:14 Omeprazole (Prilosec) 20 mg PO DAILY@0730 [facility] Stop: 06/10/18 07:31 Last Admin: 12/09/17 08:22 Dose: 20 mg Simethicone (Gas-X) 80 mg PO TID PRN PRN Reason: Dyspepsia Stop: 06/09/18 21:09 Last Admin: 12/08/17 21:27 Dose: 80 mg Simvastatin (Zocor) 20 mg PO HS [facility]; Protocol Stop: 06/09/18 21:01 Last Admin: 12/08/17 21:27 Dose: 20 mg Sitagliptin Phosphate (Januvia) 50 mg PO DAILY [facility] Stop: 06/10/18 09:01 Last Admin: 12/09/17 08:22 Dose: 50 mg - Imaging and Cardiology Echo: pending Cardiac cath: report reviewed Consult Discharge Plan - Plan Referrals: Rajiv Peguero MD [Primary Care Provider] -
[2017-12-09 11:28] VITALS: BP 99/58
--- NOTE | 2017-12-09 15:06 | Discharge Summary ---
- NOTES TO OUTPATIENT PROVIDER Notes to Outpatient Provider: Follow-up with cardiology as an outpatient Orders not resulted at time of discharge: Pending orders 12/08/17 07:40 Culture,Urine [RM] Stat 12/09/17 23:28 Heparin anti-factor XA UFH [COAG] Timed Date of Encounter: 12/09/17 Time of Encounter: 11:00 - Discharge Diagnosis (1) Coronary artery disease Priority: Primary Status: Acute Qualifiers: Coronary Disease-Associated Artery/Lesion type: hoh artery [place] vs. transplanted heart: hoh heart Associated angina: angina presence unspecified Qualified Code(s): I25.10 - Atherosclerotic heart disease of hoh coronary artery without angina pectoris (2) Hypercholesterolemia Priority: Secondary Status: Acute (3) BPH (benign prostatic hyperplasia) Priority: Secondary Status: Acute Qualifiers: Lower urinary tract symptom detail: unspecified Qualified Code(s): N40.1 - Benign prostatic hyperplasia with lower urinary tract symptoms (4) Diabetes type 2, controlled Priority: Secondary Status: Acute Qualifiers: Diabetes mellitus exterminator helper insulin use: without group home use Diabetes mellitus complication status: without complication Qualified Code(s): E11.9 - Type 2 diabetes mellitus without complications (5) NSTEMI (non-ST elevated myocardial infarction) Priority: Primary Status: Acute (6) Abnormal urinalysis Priority: Secondary Status: Acute Hospital course: Patient is a 82-year-old male with past medical history significant for hypertension, hypercholesterolemia and coronary artery disease with previous stent placement presenting to the emergency department with chief complaint of abdominal pain associated with belching. Cardiology was consulted and the patient was admitted for further evaluation and management. During patients hospital stay cardiology evaluated patient and ACS was ruled out. Echocardiogram show LVEF of 55-60% with moderate left ventricular diastolic dysfunction. Cardiology recommendations for patient to continue home aspirin, Plavix, statin and beta henrik. - Time Spent with Patient Total time spent providing and/or coordinating discharge services: Less than 30 minutes - Discharge Medications Home Medications: Aspirin 81 mg PO DAILY 08/08/16 [History] Clopidogrel [Plavix] 75 mg PO DAILY 08/08/16 [History] Ergocalciferol (VITAMIN D2) [Vitamin D2] 50,000 unit PO PETTY 08/08/16 [History] Lisinopril [Zestril] 40 mg PO DAILY 08/08/16 [History] Multivitamin [One Daily Multivitamin] 1 each PO DAILY 08/08/16 [History] Simvastatin [Zocor] 20 mg PO HS 08/08/16 [History] Sitagliptin Phosphate [Januvia] 50 mg PO DAILY 05/08/17 [History] amLODIPine [Norvasc] 5 mg PO DAILY 05/08/17 [History] hydroCHLOROthiazide [Hydrochlorothiazide] 25 mg PO DAILY 05/08/17 [History] Metoprolol [Lopressor] 12.5 mg PO BID #30 tablet 05/10/17 [Rx] Pantoprazole Sodium [Protonix] 40 mg PO DAILY 12/08/17 [History] Allergies/Adverse Reactions: Allergy/AdvReac Type Severity Reaction Status Date / Time No Known Allergies Allergy Verified 12/08/17 07:10 Date of admission: 12/09/17 09:24 Primary care physician: Rajiv Peguero MD Consults: 12/08/17 09:15 Consult to Cardiology [CONS] Stat Comment: Consulting Provider: Cardiology Delmy Reason for Consult: elevated trop Call Completed: Yes - Constitutional Vitals: Temp Pulse Resp BP Pulse Ox 98.6 F 52 16 99/58 90 12/09/17 11:27 12/09/17 11:27 12/09/17 11:27 12/09/17 11:27 12/09/17 11:27 General appearance: Present: A&O X 3 Exam: Gen.: Nonacute distress, alert and oriented 3 Skin: Normal color - Patient Status Disposition: Home, Self-Care Condition: Fair - Discharge Instructions Instructions: Acute Abdominal Pain (DC) Follow Up With: Rajiv Peguero MD [Primary Care Provider] -
== END 2017-12-09 16:20 | disposition home or self-care (01) | DRG 282 ==
LOC: EMEROOARM 07:05 → 3BNU 07:05 → SUATTDRO 09:50 → 3BNU 11:07
PROVIDERS: ADMIT Internal Medicine Nephrology; ATTEND Hospitalist

== ENCOUNTER 2018-12-24 13:44 | Inpatient (IN) ==
[2018-12-24 14:38] LABS: Basophils % 0.4 %; Eosinophils # 0.2 K/mcL (0.0-0.6); Eosinophils % 1.9 %; Hematocrit 35.9 % (37.5-50.1); Hemoglobin 12.5 g/dL (12.9-16.9); Immature Granulocytes % 0.1 % (0-4); Lymphocytes % 23.9 %; Mean Corpuscular HGB Conc 34.8 g/dL (31.6-35.5); Mean Corpuscular Hemoglobin 31.2 pg (28.0-33.3); Mean Corpuscular Volume 89.5 fL (83.0-100.0); Mean Platelet Volume 9.7 fL (9.4-12.4); Monocytes # 0.7 K/mcL (0.0-1.3); Neutrophils # 5.5 K/mcL (1.6-8.9); Platelet Count 194 K/mcL (140-400); Red Blood Count 4.01 M/mcL (4.19-5.50); Segmented Neutrophils % 65.7 %; White Blood Count 8.4 K/mcL (4.3-11.1)
[2018-12-24 14:58] LABS: Albumin 4.1 g/dL (3.5-5.7); Albumin/Globulin Ratio 1.7 (1.1-2.2); Bilirubin,Total 0.3 mg/dL (0.3-1.0); Calcium 9.5 mg/dL (8.6-10.3); Globulin 2.4 g/dL (2.4-3.5); Potassium 4.2 mEq/L (3.5-5.1); Total Protein 6.5 g/dL (6.4-8.9)
[2018-12-24] MEDS ORDERED: *HR* Heparin 5,000 UNIT/ML VIAL IVP PRN ×2 (15:13)
[2018-12-24] MEDS ORDERED: *HR* Heparin 5,000 UNIT/ML VIAL IVP ONE (15:13)
[2018-12-24] MEDS: Heparin 25,000 UNIT/250 ML D5W 25,000 UNIT/250 ML IV.SOLN IVC SCH (15:24)
[2018-12-24 15:32] LABS: INR 1.1; Prothrombin Time 12.4 Seconds (9.4-12.1)
[2018-12-24] MEDS ORDERED: Naloxone 0.4 MG/ML INJ IVP PRN (16:01)
[2018-12-24] MEDS ORDERED: Nitroglycerin 0.4 MG TAB.SUBL SL PRN (16:04)
[2018-12-24] MEDS ORDERED: Dextrose Gel 15 GM/37.5 ML TUBE PO PRN ×2 (16:05)
[2018-12-24] MEDS ORDERED: D5% in Water 1,000 ML IVC PRN (16:05)
[2018-12-24] MEDS ORDERED: *HR* Dextrose 50 % in Water (Syg) 50 ML SYRINGE IVP PRN (16:05)
[2018-12-24 16:24] LABS: Estimated Average Glucose 166 mg/dl
[2018-12-24] MEDS: Insulin LISPRO 300 UNITS/3 ML VIAL SQ SCH (17:38)
[2018-12-24] MEDS: Aspirin Enteric Coated 81 MG Tablet PO SCH (17:57)
[2018-12-25 02:48] LABS: Basophils % 0.7 %; Eosinophils # 0.1 K/mcL (0.0-0.6); Eosinophils % 2.5 %; Hematocrit 35.7 % (37.5-50.1); Hemoglobin 11.6 g/dL (12.9-16.9); Immature Granulocytes % 0.2 % (0-4); Lymphocytes # 1.9 K/mcL (0.6-4.6); Lymphocytes % 33.2 %; Mean Corpuscular HGB Conc 32.5 g/dL (31.6-35.5); Mean Corpuscular Hemoglobin 30.1 pg (28.0-33.3); Mean Corpuscular Volume 92.7 fL (83.0-100.0); Mean Platelet Volume 10.1 fL (9.4-12.4); Monocytes # 0.6 K/mcL (0.0-1.3); Monocytes % 10.6 %; Platelet Count 173 K/mcL (140-400); Red Blood Count 3.85 M/mcL (4.19-5.50); Segmented Neutrophils % 52.8 %; White Blood Count 5.6 K/mcL (4.3-11.1)
[2018-12-25 03:06] LABS: BUN/Creatinine Ratio 24 (6-26); Blood Urea Nitrogen 32 mg/dL (8-23); Calcium 9.2 mg/dL (8.6-10.3); Carbon Dioxide 29 mEq/L (23-29); Chloride 104 mEq/L (98-107); Glucose 150 mg/dL (70-105); Magnesium 1.8 mg/dL (1.6-2.6); Osmolality,Calculated 302 (280-300); Potassium 3.7 mEq/L (3.5-5.1); Sodium 141 mEq/L (136-145); eGFR For African Americans > 60 (> 60); eGFR For Non-African Americans 50 (> 60)
[2018-12-25] MEDS: Insulin LISPRO 300 UNITS/3 ML VIAL SQ SCH ×3 (07:54→16:17)
[2018-12-25] MEDS ORDERED: Lisinopril 20 MG TABLET PO SCH (09:00)
[2018-12-25] MEDS: amLODIPine 5 MG TABLET PO SCH (10:12)
[2018-12-25] MEDS: Aspirin Enteric Coated 81 MG Tablet PO SCH (10:12)
[2018-12-25] MEDS: 0.9 % Sodium Chloride 1,000 ML IVC SCH (12:24)
[2018-12-25] MEDS ORDERED: Sennosides/Docusate Sodium TABLET PO PRN (14:07)
[2018-12-25] MEDS: *HR* Acetylcysteine 20% 600 MG/3 ML ORAL SYRINGE PO SCH ×2 (14:38→20:41)
[2018-12-26] MEDS: 0.9 % Sodium Chloride 1,000 ML IVC SCH (00:54)
[2018-12-26] MEDS: Heparin 25,000 UNIT/250 ML D5W 25,000 UNIT/250 ML IV.SOLN IVC SCH (00:55)
[2018-12-26 01:24] LABS: Hematocrit 36.7 % (37.5-50.1); Hemoglobin 12.7 g/dL (12.9-16.9); Mean Corpuscular HGB Conc 34.6 g/dL (31.6-35.5); Mean Corpuscular Hemoglobin 31.5 pg (28.0-33.3); Mean Corpuscular Volume 91.1 fL (83.0-100.0); Mean Platelet Volume 10.5 fL (9.4-12.4); Platelet Count 188 K/mcL (140-400); Red Blood Count 4.03 M/mcL (4.19-5.50); White Blood Count 7.6 K/mcL (4.3-11.1)
[2018-12-26 01:38] LABS: Magnesium 1.7 mg/dL (1.6-2.6); Potassium 3.9 mEq/L (3.5-5.1)
[2018-12-26 01:42] LABS: % Iron Saturation 79 % (20-55); Iron 178 mcg/dL (65-175); Transferrin 161 mg/dL (203-362)
[2018-12-26 01:59] LABS: Ferritin 86 ng/mL (20-250)
[2018-12-26] MEDS ORDERED: Sod Bicarb 150mEq/D5W 150 MEQ/1,000 ML IV.SOLN IVC SCH (06:00)
[2018-12-26] MEDS ORDERED: Sodium Bicarbonate 150 MEQ in D5% in Water 850 ML IVC SCH (06:00)
[2018-12-26] MEDS: Insulin LISPRO 300 UNITS/3 ML VIAL SQ SCH ×3 (08:02→17:49)
[2018-12-26] MEDS: Aspirin Enteric Coated 81 MG Tablet PO SCH (08:09)
[2018-12-26] MEDS: amLODIPine 5 MG TABLET PO SCH (08:09)
[2018-12-26] MEDS: *HR* Acetylcysteine 20% 600 MG/3 ML ORAL SYRINGE PO SCH ×2 (08:10→22:22)
[2018-12-26] MEDS ORDERED: Adenosine 90 MG/30 ML MLS IV ONE (10:12)
[2018-12-26] MEDS ORDERED: ISOVUE-370 200 ML INFUS..BTL ONE (13:21)
[2018-12-26] MEDS ORDERED: 0.9 % Sodium Chloride 1,000 ML ONE (13:21)
[2018-12-26] MEDS ORDERED: *HR* Heparin 10,000 UNIT/10 ML VIAL ONE (13:21)
[2018-12-26] MEDS ORDERED: Heparin 1,000 UNITS/500 mL 500 ML ONE (13:21)
[2018-12-26] MEDS ORDERED: Nitroglycerin 1,000 MCG/10 ML VIAL IV ONE (13:21)
[2018-12-26] MEDS ORDERED: Verapamil 5 MG/2 ML VIAL ONE (13:47)
[2018-12-26] MEDS ORDERED: *HR* FentaNYL (PF) 100 MCG/2 ML VIAL ONE (13:48)
[2018-12-26] MEDS ORDERED: *HR* Midazolam HCl 2 MG/2 ML VIAL ONE (13:48)
[2018-12-26] MEDS ORDERED: Acetaminophen 325 MG TABLET PO PRN (14:53)
[2018-12-27 02:38] LABS: Calcium 8.9 mg/dL (8.6-10.3); Potassium 3.5 mEq/L (3.5-5.1)
[2018-12-27] MEDS: Insulin LISPRO 300 UNITS/3 ML VIAL SQ SCH ×2 (08:22→12:48)
[2018-12-27] MEDS: amLODIPine 5 MG TABLET PO SCH (08:29)
[2018-12-27] MEDS: Aspirin Enteric Coated 81 MG Tablet PO SCH (08:31)
[2018-12-27] MEDS: *HR* Acetylcysteine 20% 600 MG/3 ML ORAL SYRINGE PO SCH (08:31)
[2018-12-27 10:51] VITALS: BP 134/85
[2018-12-30] MEDS ORDERED: Ergocalciferol (VIT D2) 50,000 UNIT (1.25MG) CAP PO SCH (09:00)
== END 2018-12-27 14:50 | disposition home or self-care (01) | DRG 281 ==
LOC: 2NENU 13:44 → EMEROOARM 13:44 → SUATTDRO 16:39 → 2NENU 16:57
PROVIDERS: ADMIT Student in an Organized Health Care Education/Training Program; ATTEND Family Medicine

== ENCOUNTER 2019-04-06 09:00 | Inpatient (IN) ==
[2019-04-06] MEDS ORDERED: *HR* HYDROcodone/Acet 5/325 mg TABLET PO ONE (09:14)
[2019-04-06 09:29] LABS: Basophils # 0.1 K/mcL (0.0-0.2); Basophils % 0.7 %; Eosinophils # 0.2 K/mcL (0.0-0.6); Eosinophils % 2.9 %; Hematocrit 38.2 % (37.5-50.1); Hemoglobin 12.6 g/dL (12.9-16.9); Immature Granulocytes % 0.3 % (0-4); Lymphocytes % 27.2 %; Mean Corpuscular Hemoglobin 30.7 pg (28.0-33.3); Mean Corpuscular Volume 92.9 fL (83.0-100.0); Mean Platelet Volume 9.8 fL (9.4-12.4); Monocytes # 0.6 K/mcL (0.0-1.3); Monocytes % 7.8 %; Neutrophils # 4.5 K/mcL (1.6-8.9); Platelet Count 182 K/mcL (140-400); Red Blood Count 4.11 M/mcL (4.19-5.50); Red Cell Distribution Width 12.9 % (11.5-14.5); Segmented Neutrophils % 61.1 %; White Blood Count 7.3 K/mcL (4.3-11.1)
[2019-04-06 09:37] LABS: INR 1.1; Prothrombin Time 12.3 Seconds (9.4-12.1)
[2019-04-06 09:40] LABS: Activated Partial Thrombo Time 32.4 Seconds (26.0-36.0)
[2019-04-06 09:53] LABS: Troponin I 1.41 ng/mL (< 0.04)
[2019-04-06 10:02] LABS: BUN/Creatinine Ratio 19 (6-26); Blood Urea Nitrogen 24 mg/dL (8-23); Calcium 9.3 mg/dL (8.6-10.3); Carbon Dioxide 29 mEq/L (23-29); Chloride 104 mEq/L (98-107); Glucose 147 mg/dL (70-105); Osmolality,Calculated 295 (280-300); Potassium 4.3 mEq/L (3.5-5.1); Sodium 139 mEq/L (136-145); eGFR For African Americans > 60 (> 60); eGFR For Non-African Americans 55 (> 60)
[2019-04-06] MEDS ORDERED: Aspirin 81 MG TAB.CHEW PO STA (10:04)
[2019-04-06] MEDS: Nitroglycerin 0.4 MG TAB.SUBL SL SCH ×3 (10:21→12:04)
[2019-04-06] MEDS ORDERED: Ondansetron 4 MG/2 ML VIAL IVP PRN (10:54)
[2019-04-06] MEDS ORDERED: Naloxone 0.4 MG/ML INJ IVP PRN (10:54)
[2019-04-06] MEDS ORDERED: Dextrose Gel 15 GM/37.5 ML TUBE PO PRN ×2 (10:55)
[2019-04-06] MEDS ORDERED: D5% in Water 1,000 ML IVC PRN (10:55)
[2019-04-06] MEDS ORDERED: *HR* Dextrose 50 % in Water (Syg) 50 ML SYRINGE IVP PRN (10:55)
[2019-04-06] MEDS: Insulin LISPRO 300 UNITS/3 ML VIAL SQ SCH ×2 (12:44→16:10)
[2019-04-06] MEDS: *HR* Heparin 5,000 UNIT/ML VIAL SQ SCH (17:37)
[2019-04-07 04:47] LABS: Basophils % 0.4 %; Eosinophils # 0.2 K/mcL (0.0-0.6); Eosinophils % 2.5 %; Hematocrit 36.7 % (37.5-50.1); Hemoglobin 11.8 g/dL (12.9-16.9); Immature Granulocytes % 0.3 % (0-4); Lymphocytes # 2.3 K/mcL (0.6-4.6); Lymphocytes % 31.5 %; Mean Corpuscular HGB Conc 32.2 g/dL (31.6-35.5); Mean Corpuscular Hemoglobin 29.9 pg (28.0-33.3); Mean Corpuscular Volume 92.9 fL (83.0-100.0); Mean Platelet Volume 10.5 fL (9.4-12.4); Monocytes # 0.7 K/mcL (0.0-1.3); Monocytes % 9.2 %; Neutrophils # 4.1 K/mcL (1.6-8.9); Platelet Count 176 K/mcL (140-400); Red Blood Count 3.95 M/mcL (4.19-5.50); Segmented Neutrophils % 56.1 %; White Blood Count 7.3 K/mcL (4.3-11.1)
[2019-04-07 05:10] LABS: Calcium 8.8 mg/dL (8.6-10.3); Potassium 3.9 mEq/L (3.5-5.1)
[2019-04-07] MEDS: *HR* Heparin 5,000 UNIT/ML VIAL SQ SCH ×2 (05:11→17:35)
[2019-04-07] MEDS: Insulin LISPRO 300 UNITS/3 ML VIAL SQ SCH ×3 (10:01→17:35)
[2019-04-07] MEDS: hydroCHLOROthiazide 25 MG TABLET PO SCH (10:07)
[2019-04-07] MEDS: Multivit/Ca/Min/Fe/FA 1 TAB TABLET PO SCH (10:07)
[2019-04-07] MEDS: Lisinopril 20 MG TABLET PO SCH (10:08)
[2019-04-07] MEDS: amLODIPine 5 MG TABLET PO SCH (10:08)
[2019-04-07] MEDS: Aspirin Enteric Coated 81 MG Tablet PO SCH (10:08)
[2019-04-07] MEDS: Isosorbide MONOnitrate (24 HR) 30 MG TAB.ER.24H PO SCH (12:28)
[2019-04-07] MEDS ORDERED: Ergocalciferol (VIT D2) 50,000 UNIT (1.25MG) CAP PO SCH (16:52)
[2019-04-08] MEDS: *HR* Heparin 5,000 UNIT/ML VIAL SQ SCH (05:45)
[2019-04-08] MEDS: Insulin LISPRO 300 UNITS/3 ML VIAL SQ SCH ×2 (08:55→11:54)
[2019-04-08] MEDS: Isosorbide MONOnitrate (24 HR) 30 MG TAB.ER.24H PO SCH (08:59)
[2019-04-08] MEDS: Multivit/Ca/Min/Fe/FA 1 TAB TABLET PO SCH (08:59)
[2019-04-08] MEDS: amLODIPine 5 MG TABLET PO SCH (09:00)
[2019-04-08] MEDS: Lisinopril 20 MG TABLET PO SCH (09:00)
[2019-04-08] MEDS: hydroCHLOROthiazide 25 MG TABLET PO SCH (09:00)
[2019-04-08] MEDS: Aspirin Enteric Coated 81 MG Tablet PO SCH (09:01)
[2019-04-08 11:52] VITALS: BP 119/67
== END 2019-04-08 15:59 | disposition home or self-care (01) | DRG 282 ==
LOC: 2NENU 09:00 → EMEROOARM 09:00 → 2NENU 11:57
PROVIDERS: ADMIT Internal Medicine; ATTEND Internal Medicine